=== PATIENT | female | born 1945 | race Caucasian/White ===

== ENCOUNTER → 2019-01-10 | Outpatient (CLI) | payer MEDICARE ==
--- NOTE | 2019-01-10 11:56 | MR ---
EXAMINATION TYPE: MR cervical spine wo con DATE OF EXAM: 01/10/2019 COMPARISON: None HISTORY: DDD / Stenosis TECHNIQUE: Multiplanar, multisequence images of the cervical spine were acquired. C2-C3: No evidence for degenerative disc disease. No disc bulge/herniation or protrusion. No Canal stenosis. Foramina are patent bilaterally. C3-C4: There is degenerative disc disease with bilateral uncovertebral joint hypertrophy and central disc bulging with mild effacement of thecal sac. There is mild left foraminal encroachment. No canal stenosis or spinal cord contact. C4-C5: Degenerative disc disease with bilateral uncovertebral joint hypertrophy. There is mild bilate ral foraminal encroachment. There is a central disc bulging with borderline central stenosis. C5-C6: Degenerative disc disease with central disc protrusion greater paracentrally left which abuts the anterior margin of the spinal cord and results in central stenosis. There is bilateral uncoverteb ral joint hypertrophy and mild bilateral foraminal encroachment. C6-C7: Degenerative disc disease with disc bulging greater laterally to the left. There is mild left foraminal encroachment. No Canal stenosis. C7-T1: Degenerative disc disease but no canal stenosis. No foraminal encroachment. Multi focal disc bulging or protrusions involving the upper thoracic spine. Cervical segments are intact. There is normal alignment. Cervical spinal cord is of normal signal. Craniovertebral junction relationships are within normal limits. IMPRESSION: 1. Multilevel degenerative disc disease with multilevel uncovertebral joint particularly in foraminal encroachment. 2. Multilevel disc bulging with the most marked findings at C4-5 and C5-C6. Findings result in centra l canal stenosis. 3. Left lateral disc bulging C6-C7 with mild left foraminal encroachment but no nerve root contact. 4. On the sagittal images there is multifocal disc bulging in the upper thoracic spine.
== END | disposition home or self-care (01) ==
LOC: RADMRIMAIN 10:17
PROVIDERS: ATTEND Orthopaedic Surgery
DX: M50.221 Other cervical disc displacement at C4-C5 level (principal); M50.31 Other cervical disc degeneration, high cervical region
CPT/HCPCS: 72141

== ENCOUNTER → 2019-05-21 | Outpatient (CLI) | payer MEDICARE ==
[2019-05-21 20:12] LABS: Iron Saturation 13.08 (12.00-45.00)
[2019-05-21 20:14] LABS: T4, Free (Free Thyroxine) 1.7 ng/dL (0.80-1.80)
== END | disposition home or self-care (01) ==
LOC: LABWHC1 12:04
PROVIDERS: ATTEND Internal Medicine Critical Care Medicine
DX: D39.0 Neoplasm of uncertain behavior of uterus (principal); G47.9 Sleep disorder, unspecified
CPT/HCPCS: 36415; 83540; 83550; 84439; 84443

== ENCOUNTER → 2019-08-21 | Outpatient (CLI) | payer MEDICARE ==
--- NOTE | 2019-08-21 10:18 | CT ---
EXAMINATION TYPE: CT brain wo con DATE OF EXAM: 08/21/2019 COMPARISON: 01/21/2015 HISTORY: 73-year-old female Headaches and dizziness TECHNIQUE: Examination was done in axial plane without intravenous contrast. Coronal and sagittal r econstructions performed. CT DLP: 1121 mGycm Automated exposure control for dose reduction was used. FINDINGS: There is no evidence of acute intracranial hemorrhage, acute ischemic changes, mass, mass-effect, or extra-axial fluid collection. There is no effacement of cerebral sulci or basal subarachnoid cister ns. There is no hydrocephalus. There is no midline shift. Vila-white matter distinction is preserv ed. Partially empty sella. Patchy white matter hypodensities stable from 2014. Benign basal ganglionic ca lcifications Mastoid air cells are well pneumatized. Orbits and globes are intact. Scattered mild mucosal thicken ing ethmoid air cells. IMPRESSION: No acute intracranial abnormality seen. Stable patchy changes of chronic small vessel ischemic diseas e. Mild chronic ethmoid sinus disease.
== END | disposition home or self-care (01) ==
LOC: RADCTMAIN 09:30
PROVIDERS: ATTEND Family Medicine
DX: R42 Dizziness and giddiness (principal)
CPT/HCPCS: 70450

== ENCOUNTER → 2019-10-21 | Outpatient (CLI) | payer MEDICARE ==
[2019-10-21 17:40] LABS: Albumin 3.8 g/dL (3.5-5.0); Calcium 9.7 mg/dL (8.4-10.2); Potassium 4.5 mmol/L (3.5-5.1); Total Bilirubin 0.7 mg/dL (0.2-1.3); Total Protein 6.8 g/dL (6.3-8.2)
--- NOTE | 2019-10-21 18:55 | US ---
EXAMINATION TYPE: US thyroid st tissue head/neck DATE OF EXAM: 10/21/2019 COMPARISON: NONE CLINICAL HISTORY: E03.9 Hypothyroidism, R13.10 dysphagia. GLAND SIZE: Right Lobe: no tissue appreciated Left Lobe: no tissue appreciated NODULES RIGHT: # of nodules measured on right: 0 LEFT: # of nodules measured on left: 0 ISTHMUS: # of nodules measured in the isthmus: 0 Bilateral neck scanned, no evidence of lymphadenopathy. Patient states no history of surgery, no thyroid tissue appreciated. IMPRESSION: No thyroid tissue seen. Correlate clinically.
== END | disposition home or self-care (01) ==
LOC: RADUSWWP 16:33
PROVIDERS: ATTEND Family Medicine
DX: E03.9 Hypothyroidism, unspecified (principal); E78.5 Hyperlipidemia, unspecified; E11.9 Type 2 diabetes mellitus without complications; R13.10 Dysphagia, unspecified; R68.2 Dry mouth, unspecified
CPT/HCPCS: 36415; 76536; 80053; 80061; 82550; 86038; 86235

== ENCOUNTER 2019-11-20 10:07 | Inpatient (IN) | payer MEDICARE ==
[2019-11-20] MEDS ORDERED: SODIUM CHLORIDE 0.9% 500 ML 500 ML IV STA (10:51)
[2019-11-20] MEDS ORDERED: PANTOPRAZOLE 40 MG/10 ML VIAL IVP STA (10:52)
--- NOTE | 2019-11-20 11:08 | ED ---
GI Bleed HPI - General Chief complaint: GI Bleed Stated complaint: rectal bleeding Time Seen by Provider: 11/20/19 10:50 Source: patient Mode of arrival: ambulatory Limitations: no limitations - History of Present Illness Initial comments: 73-year-old female presenting for GI bleeding times weeks. Patient states that she has had bright red blood per rectum small amount with a past 3 weeks she states has been increasing and become a large amount over the last 3 days. Patient amidst a cold intolerance denies palpitations she states is diffuse nonspecific abdominal pain denies it being severe she states it is mild. Patient states it is crampy in nature without radiation. Denies vomiting, fevers, diarrhea. Patient states that she was so weak on Sunday she fell forward hitting her head. Patient denies loss of consciousness denies syncope. Patient denies any chest pain or shortness of breath. Patient has a known history of diverticulitis or diverticulosis. Patient is on xarelto due to history of deep venous thrombosis and pulmonary embolism. Patient states she is compliant last dose was yesterday evening. Patient did not take any xarelto today. Patient appears well on arrival, no acute distress, BP stable, no tachycardia. - Related Data Home Medications Medication Instructions Recorded Confirmed Furosemide [Lasix] 20 mg PO DAILY PRN 08/25/14 11/20/19 Cholecalciferol [Vitamin D3 (25 1,000 unit PO DAILY 10/03/15 11/20/19 Mcg = 1000 Iu)] Cyanocobalamin [Vitamin B-12] 500 mcg PO DAILY 10/04/15 11/20/19 Insulin Detemir [Levemir Flextouch] 34 units SQ HS 10/04/15 11/20/19 Insulin Lispro [humaLOG Kwikpen] 6 unit SQ AC-TID 10/04/15 11/20/19 Pantoprazole [Protonix] 40 mg PO DAILY 10/04/15 11/20/19 Rivaroxaban [Xarelto] 20 mg PO DAILY 03/04/19 11/20/19 Aspirin EC [Ecotrin Low Dose] 81 mg PO DAILY 11/20/19 11/20/19 DULoxetine HCL [Cymbalta] 30 mg PO DAILY 11/20/19 11/20/19 Ferrous Sulfate [Feosol] 325 mg PO DAILY 11/20/19 11/20/19 Isosorbide Mononitrate ER [Imdur] 30 mg PO DAILY 11/20/19 11/20/19 Levothyroxine Sodium [Synthroid] 125 mcg PO DAILY 11/20/19 11/20/19 Melatonin 5 mg PO HS 11/20/19 11/20/19 Metoprolol Tartrate [Lopressor] 25 mg PO BID 11/20/19 11/20/19 Potassium Gluconate 99 mg PO DAILY 11/20/19 11/20/19 Pravastatin Sodium [Pravachol] 10 mg PO HS 11/20/19 11/20/19 Allergies Allergy/AdvReac Type Severity Reaction Status Date / Time losartan [Losartan] AdvReac Cough Verified 11/20/19 14:27 Review of Systems ROS Statement: Those systems with pertinent positive or pertinent negative responses have been documented in the HPI. ROS Other: All systems not noted in ROS Statement are negative. Past Medical History Past Medical History: Cancer, Chest Pain / Angina, COPD, Diabetes Mellitus, Deep Vein Thrombosis (DVT), GERD/Reflux, Hyperlipidemia, Hypertension, Pneumonia, Pulmonary Embolus (PE), Thyroid Disorder Additional Past Medical History / Comment(s): DVT X2 LAST ONE 08/2014, HX UTERINE CA, RADIATION. IRON DEFECIENCY ANEMIA. 3 BLOOD CLOTS TO RIGHT LEG IN THE PAST. History of Any Multi-Drug Resistant Organisms: None Reported Past Surgical History: Adenoidectomy, Appendectomy, Hysterectomy, Orthopedic Surgery, Tonsillectomy Additional Past Surgical History / Comment(s): breast reduction, chin lift, lisette knee replacement Past Anesthesia/Blood Transfusion Reactions: No Reported Reaction Past Psychological History: Anxiety Smoking Status: Never smoker Past Alcohol Use History: Occasional Past Drug Use History: None Reported - Past Family History Sister(s) Family Medical History: Diabetes Mellitus Father Additional Family Medical History / Comment(s): Stroke Mother Family Medical History: Congestive Heart Failure (CHF) General Exam - General Exam Comments Initial Comments: General: The patient is awake and alert, in no distress Eye: +3 mm pupils are equal, round and reactive to light, extra-ocular movements are intact. No nystagmus. There is normal conjunctiva bilaterally. No signs of icterus. Ears, nose, mouth and throat: There are moist mucous membranes and no oral lesions. Neck: The neck is supple, there is no tenderness or JVD. Cardiovascular: There is a regular rate and rhythm. No murmur, rub or gallop is appreciated. Respiratory: Lungs are clear to auscultation, respirations are non-labored, breath sounds are equal. No wheezes, stridor, rales, or rhonchi. Gastrointestinal: Soft, non-distended, diffuse mild nonlocalized abdominal pain, no localized tenderness, abdomen without masses or organomegaly noted. There is no rebound or guarding present. Rectal: External hemorrhoids, no bright red blood per rectum. Musculoskeletal: Normal ROM, no tenderness. Strength 5/5. Sensation intact. Radial and DP pulses equal bilaterally 2+. Neurological: A&O x 3. CN II-XII intact grossly, There are no obvious motor or sensory deficits. Coordination appears grossly intact. Speech is normal. Skin: Skin is warm and dry and no rashes or lesions are noted. Psychiatric: Cooperative, appropriate mood & affect, normal judgment. Limitations: no limitations Course Vital Signs 11/20/19 11/20/19 11/20/19 10:18 11:21 12:00 Temperature 97.5 F L Pulse Rate 60 68 Pulse Rate [ Product Safety Officer ] Respiratory 18 20 16 Rate Blood Pressure 107/67 155/73 Blood Pressure [Left Arm] O2 Sat by Pulse 97 98 98 Oximetry 11/20/19 11/20/19 11/20/19 12:33 12:40 12:50 Temperature Pulse Rate 64 66 65 Pulse Rate [ Product Safety Officer ] Respiratory 16 16 16 Rate Blood Pressure 155/73 155/73 Blood Pressure [Left Arm] O2 Sat by Pulse 97 99 98 Oximetry 11/20/19 11/20/19 13:00 13:41 Temperature 98.1 F Pulse Rate 62 Pulse Rate [ 66 Product Safety Officer ] Respiratory 16 16 Rate Blood Pressure 154/74 Blood Pressure 195/91 [Left Arm] O2 Sat by Pulse 98 97 Oximetry Medical Decision Making - Medical Decision Making 73yo female presenting bright red bleeding per rectum. Pinkish, light brown stool on exam. Occult +. CT (-) for acute process. Pt on xarelot. HgB. BP stable. Patient HR WNL. Patient will be admitted for GI bleed with GI consultation. Repeat CBC ordered, patient on IV fluids. Dr. Orr is agreeable to admission and care plan. - Lab Data Result diagrams: 11/20/19 11:24 11/20/19 11:24 Lab Results 11/20/19 11/20/19 11/20/19 Range/Units 11:15 11:24 11:24 WBC 4.5 (3.8-10.6) k/uL RBC 4.20 (3.80-5.40) m/uL Hgb 12.0 (11.4-16.0) gm/dL Hct 38.0 (34.0-46.0) % MCV 90.5 (80.0-100.0) fL MCH 28.5 (25.0-35.0) pg MCHC 31.5 (31.0-37.0) g/dL RDW 13.9 (11.5-15.5) % Plt Count 158 (150-450) k/uL Neutrophils % 56 % Lymphocytes % 29 % Monocytes % 5 % Eosinophils % 6 % Basophils % 1 % Neutrophils # 2.6 (1.3-7.7) k/uL Lymphocytes # 1.3 (1.0-4.8) k/uL Monocytes # 0.2 (0-1.0) k/uL Eosinophils # 0.3 (0-0.7) k/uL Basophils # 0.0 (0-0.2) k/uL APTT (22.0-30.0) sec Sodium 135 L (137-145) mmol/L Potassium 5.1 (3.5-5.1) mmol/L Chloride 99 (98-107) mmol/L Carbon Dioxide 31 H (22-30) mmol/L Anion Gap 5 mmol/L BUN 33 H (7-17) mg/dL Creatinine 0.84 (0.52-1.04) mg/dL Est GFR (CKD-EPI)AfAm 79 (>60 ml/min/1.73 sqM) Est GFR (CKD-EPI)NonAf 68 (>60 ml/min/1.73 sqM) Glucose 414 H (74-99) mg/dL Plasma Lactic Acid Jaquan (0.7-2.0) mmol/L Calcium 9.3 (8.4-10.2) mg/dL Total Bilirubin 0.8 (0.2-1.3) mg/dL AST 26 (14-36) U/L ALT 22 (4-34) U/L Alkaline Phosphatase 104 (38-126) U/L Troponin I (0.000-0.034) ng/mL Total Protein 6.1 L (6.3-8.2) g/dL Albumin 3.4 L (3.5-5.0) g/dL Stool Occult Blood Positive H (Negative) Blood Type Blood Type Confirm Blood Type Recheck Bld Type Recheck Status Antibody Screen Spec Expiration Date 11/20/19 11/20/19 11/20/19 Range/Units 11:24 11:24 11:24 WBC (3.8-10.6) k/uL RBC (3.80-5.40) m/uL Hgb (11.4-16.0) gm/dL Hct (34.0-46.0) % MCV (80.0-100.0) fL MCH (25.0-35.0) pg MCHC (31.0-37.0) g/dL RDW (11.5-15.5) % Plt Count (150-450) k/uL Neutrophils % % Lymphocytes % % Monocytes % % Eosinophils % % Basophils % % Neutrophils # (1.3-7.7) k/uL Lymphocytes # (1.0-4.8) k/uL Monocytes # (0-1.0) k/uL Eosinophils # (0-0.7) k/uL Basophils # (0-0.2) k/uL APTT 25.9 (22.0-30.0) sec Sodium (137-145) mmol/L Potassium (3.5-5.1) mmol/L Chloride (98-107) mmol/L Carbon Dioxide (22-30) mmol/L Anion Gap mmol/L BUN (7-17) mg/dL Creatinine (0.52-1.04) mg/dL Est GFR (CKD-EPI)AfAm (>60 ml/min/1.73 sqM) Est GFR (CKD-EPI)NonAf (>60 ml/min/1.73 sqM) Glucose (74-99) mg/dL Plasma Lactic Acid Jaquan 1.7 (0.7-2.0) mmol/L Calcium (8.4-10.2) mg/dL Total Bilirubin (0.2-1.3) mg/dL AST (14-36) U/L ALT (4-34) U/L Alkaline Phosphatase (38-126) U/L Troponin I <0.012 (0.000-0.034) ng/mL Total Protein (6.3-8.2) g/dL Albumin (3.5-5.0) g/dL Stool Occult Blood (Negative) Blood Type Blood Type Confirm Blood Type Recheck Bld Type Recheck Status Antibody Screen Spec Expiration Date 11/20/19 11/20/19 Range/Units 11:24 12:25 WBC (3.8-10.6) k/uL RBC (3.80-5.40) m/uL Hgb (11.4-16.0) gm/dL Hct (34.0-46.0) % MCV (80.0-100.0) fL MCH (25.0-35.0) pg MCHC (31.0-37.0) g/dL RDW (11.5-15.5) % Plt Count (150-450) k/uL Neutrophils % % Lymphocytes % % Monocytes % % Eosinophils % % Basophils % % Neutrophils # (1.3-7.7) k/uL Lymphocytes # (1.0-4.8) k/uL Monocytes # (0-1.0) k/uL Eosinophils # (0-0.7) k/uL Basophils # (0-0.2) k/uL APTT (22.0-30.0) sec Sodium (137-145) mmol/L Potassium (3.5-5.1) mmol/L Chloride (98-107) mmol/L Carbon Dioxide (22-30) mmol/L Anion Gap mmol/L BUN (7-17) mg/dL Creatinine (0.52-1.04) mg/dL Est GFR (CKD-EPI)AfAm (>60 ml/min/1.73 sqM) Est GFR (CKD-EPI)NonAf (>60 ml/min/1.73 sqM) Glucose (74-99) mg/dL Plasma Lactic Acid Jaquan (0.7-2.0) mmol/L Calcium (8.4-10.2) mg/dL Total Bilirubin (0.2-1.3) mg/dL AST (14-36) U/L ALT (4-34) U/L Alkaline Phosphatase (38-126) U/L Troponin I (0.000-0.034) ng/mL Total Protein (6.3-8.2) g/dL Albumin (3.5-5.0) g/dL Stool Occult Blood (Negative) Blood Type AB Positive Blood Type Confirm AB Positive Blood Type Recheck No Previous Record Bld Type Recheck Status CABO Indicated Antibody Screen NEGATIVE Spec Expiration Date 11/23/2019 - 2323 Disposition Clinical Impression: GI bleed, Fall Disposition: HOME SELF-CARE Condition: Stable Is patient prescribed a controlled substance at d/c from ED?: No Time of Disposition: 13:01 Decision to Admit Reason: Admit from EC Decision Date: 11/20/19 Decision Time: 13:01
[2019-11-20 11:40] LABS: Basophils % (A) 1 %; Eosinophils # (A) 0.3 k/uL (0-0.7); Eosinophils % (A) 6 %; Lymphocytes # (A) 1.3 k/uL (1.0-4.8); Lymphocytes % (A) 29 %; MCH 28.5 pg (25.0-35.0); MCHC 31.5 g/dL (31.0-37.0); MCV 90.5 fL (80.0-100.0); Mean Platelet Volume 8.8; Monocytes # (A) 0.2 k/uL (0-1.0); Monocytes % (A) 5 %; Neutrophils # (A) 2.6 k/uL (1.3-7.7); Neutrophils % (A) 56 %; Platelet Count 158 k/uL (150-450); RDW 13.9 % (11.5-15.5); WBC 4.5 k/uL (3.8-10.6)
[2019-11-20 11:55] LABS: Albumin 3.4 g/dL (3.5-5.0); Calcium 9.3 mg/dL (8.4-10.2); Potassium 5.1 mmol/L (3.5-5.1); Total Bilirubin 0.8 mg/dL (0.2-1.3); Total Protein 6.1 g/dL (6.3-8.2)
--- NOTE | 2019-11-20 12:21 | XR ---
Lumbar spine HISTORY: Trauma and pain 3 views of the lumbar spine Bone mineralization is reduced. There is multilevel spondylosis. There is anterolisthesis grade 1 at L4-5. Loss of disc height is present at intervertebral levels. Vacuum disc phenomenon present at T12- L1, T11-T12, L1-2. Sclerosis present in the posterior elements of the lumbar spine compatible with fa cet arthropathy. There are dense vascular calcifications within the aorta, aorta may be aneurysmal. IMPRESSION: Osteopenia, degenerative disc disease and facet arthropathy. Possible aortic aneurysm.
[2019-11-20] MEDS: SODIUM CHLORIDE 0.9% 1,000 ML IV SCH (12:26)
--- NOTE | 2019-11-20 12:40 | CT ---
EXAMINATION TYPE: CT brain leidy wo con DATE OF EXAM: 11/20/2019 COMPARISON: 08/21/2019 HISTORY: Fall on 11/17/2019. Head and neck pain. CT DLP: 1454.6 mGycm, Automated exposure control for dose reduction was used. CONTRAST: Patient injected with 0 mL of Isovue 300. CT of the brain is performed utilizing 3 mm thick sections through the posterior fossa and 3 mm thick sections through the remaining calvarium. Study is performed within 24 hours of arrival to the hospital. No abnormal hyperdensity is present to suggest an acute intracranial hemorrhage. No mass lesion is evident. No acute infarcts are evident. There is some hypodensity within the left basal ganglion. This was pr esent previously. Periventricular white matter hypodensity is present, likely on the basis of chronic white matter ischemic change. Ventricles and sulci are prominent for the patient age. Paranasal sinuses and mastoid air cells within the [id number] are clear. IMPRESSIONS: 1. Atrophy with periventricular white matter ischemic changes. 2. No acute intracranial process. CT cervical spine. COMPARISON: None CT of the cervical spine is performed in the axial plane at 2 mm thick sections. Reconstructed image s in the coronal, and sagittal plane are reviewed on the computer. No acute fractures are evident. There is straightening of the vertebral alignment in the sagittal plane. Disc space narrowing is present diffusely. Vertebral body heights are preserved. No spinal canal stenosis is evident. Uncovertebral joint hypertrophy is present with some mild foraminal narrowing within the mid to lower cervical spine. IMPRESSIONS: 1. Degenerative disc changes. 2. No acute osseous abnormality is evident.
[2019-11-20] MEDS ORDERED: NALOXONE 0.4 MG/ML 1 ML VIAL IV PRN (12:58)
[2019-11-20] MEDS ORDERED: INSULIN REGULAR 100 UNIT/ML VIAL SQ ONE (13:08)
--- NOTE | 2019-11-20 13:09 | CT ---
EXAMINATION TYPE: CT abdomen pelvis w con DATE OF EXAM: 11/20/2019 COMPARISON: None INDICATION: Fall on 11/17/2019. Pelvic pain and rectal bleeding. DLP: 1131.2 mGycm, Automated exposure control for dose reduction was used. CONTRAST: 100 mL of Isovue 300. Study performed without Oral Contrast TECHNIQUE: Axial images were obtained from above the diaphragm to the pubic rami in the axial plane a t 5 mm thick sections. Reconstructed images are reviewed on the computer in the coronal plane. FINDINGS: Limited CT sections are obtained the lung bases. The lung bases are clear. CT ABDOMEN: Liver: Normal Spleen: Normal Pancreas: Normal Adrenal glands: The adrenal glands are normal. Gallbladder: Normal Kidneys: No masses are evident. No hydronephrosis is present. No cysts are present. Delayed images were obtained through the kidneys, which remain unremarkable. Aorta: Vascular calcification is within the aorta. Inferior vena cava: Normal. CT PELVIS: There is a small fat-containing periumbilical hernia. Loops of bowel within the abdomen and pelvis are normal. There are loops of bowel which are incom pletely distended or lack oral contrast limiting their evaluation. Appendix: Appears to be the appendix is Normal as visualized. Urinary bladder: Normal. Genitourinary structures: Uterus and ovaries are not identified. Osseous structures: No suspicious lytic or sclerotic lesions are evident. Facet degenerative changes are in the lower lumbar spine. Degenerative disc changes are in the upper lumbar spine. IMPRESSIONS: 1. Small mesenteric fat containing periumbilical hernia.
[2019-11-20] MEDS ORDERED: ACETAMINOPHEN TAB 325 MG TAB PO STA (13:24)
[2019-11-20 13:25] LABS: Glucose,Whole Blood 345 mg/dL (75-99)
[2019-11-20] MEDS ORDERED: FUROSEMIDE 20 MG TAB PO PRN (16:25)
[2019-11-20 16:30] LABS: Glucose,Whole Blood 355 mg/dL (75-99)
[2019-11-20] MEDS ORDERED: ISOSORBIDE MONONITRATE ER 30 MG TAB.ER.24H PO STA (17:19)
[2019-11-20] MEDS: INSULIN ASPART (NovoLOG) 100 UNIT/ML VIAL SQ SCH ×3 (17:27→21:19)
--- NOTE | 2019-11-20 18:45 | P.HPIM ---
History of Present Illness H&P Date: 11/20/19 Chief Complaint: Hematochezia 73-year-old female with PMH of hypertension, CAD post CABG, hypothyroidism, atrial fibrillation on anticoagulation, diabetes mellitus presents to the ED for rectal bleed. Patient reports rectal bleeding that has been ongoing for the past week. Patient states that she is squirting bright red blood out of her rectum without clots. Patient also reports loose stools since Sunday. She denies any melena. Patient reports "falling flat on her face" on Sunday but denies any loss of consciousness. She states that her legs simply gave out. This happened while she was attempting to get out of bed. Patient currently reports a temporal headache. She denies any lower extremity edema, nausea or vomiting, fever or chills, cough, chest pain, shortness of breath, palpitations, changes in urination. She denies any changes in appetite. Patient denies dizziness, numbness/weakness/tingling of the extremities. In the ED, she was hemodynamically stable except for BP slightly elevated at 155/73. CBC was unremarkable. Cognition panel was negative. CMP showed sodium 135, bicarbonate 31, BUN 33, glucose 414. Troponin was less than 0.012, EKG showing sinus bradycardia with T-wave inversion. Stool for occult blood was positive. CT abdomen and pelvis showed periumbilical hernia. Lumbar x-ray showed degenerative disc disease and possible aortic aneurysm. CT of the head and neck showed no acute process. Patient is admitted for rectal bleed with gastroenterology on consultation. Review of Systems Pertinent positives and negatives as discussed in HPI, a complete review of systems was performed and all other systems are negative. Past Medical History Past Medical History: Cancer, Chest Pain / Angina, COPD, Diabetes Mellitus, Deep Vein Thrombosis (DVT), GERD/Reflux, Hyperlipidemia, Hypertension, Pneumonia, Pulmonary Embolus (PE), Thyroid Disorder Additional Past Medical History / Comment(s): DVT X2 LAST ONE 08/2014, HX UTERINE CA, RADIATION. IRON DEFECIENCY ANEMIA. 3 BLOOD CLOTS TO RIGHT LEG IN THE PAST. History of Any Multi-Drug Resistant Organisms: None Reported Past Surgical History: Adenoidectomy, Appendectomy, Hysterectomy, Orthopedic Surgery, Tonsillectomy Additional Past Surgical History / Comment(s): breast reduction, chin lift, lisette knee replacement Past Anesthesia/Blood Transfusion Reactions: No Reported Reaction Past Psychological History: Anxiety Smoking Status: Never smoker Past Alcohol Use History: Occasional Past Drug Use History: None Reported - Past Family History Sister(s) Family Medical History: Diabetes Mellitus Father Additional Family Medical History / Comment(s): Stroke Mother Family Medical History: Congestive Heart Failure (CHF) Medications and Allergies Home Medications Medication Instructions Recorded Confirmed Type Furosemide [Lasix] 20 mg PO DAILY PRN 08/25/14 11/20/19 History Cholecalciferol [Vitamin D3 (25 1,000 unit PO DAILY 10/03/15 11/20/19 History Mcg = 1000 Iu)] Cyanocobalamin [Vitamin B-12] 500 mcg PO DAILY 10/04/15 11/20/19 History Insulin Detemir [Levemir Flextouch] 34 units SQ HS 10/04/15 11/20/19 History Insulin Lispro [humaLOG Kwikpen] 6 unit SQ AC-TID 10/04/15 11/20/19 History Pantoprazole [Protonix] 40 mg PO DAILY 10/04/15 11/20/19 History Rivaroxaban [Xarelto] 20 mg PO DAILY 03/04/19 11/20/19 History Aspirin EC [Ecotrin Low Dose] 81 mg PO DAILY 11/20/19 11/20/19 History DULoxetine HCL [Cymbalta] 30 mg PO DAILY 11/20/19 11/20/19 History Ferrous Sulfate [Feosol] 325 mg PO DAILY 11/20/19 11/20/19 History Isosorbide Mononitrate ER [Imdur] 30 mg PO DAILY 11/20/19 11/20/19 History Levothyroxine Sodium [Synthroid] 125 mcg PO DAILY 11/20/19 11/20/19 History Melatonin 5 mg PO HS 11/20/19 11/20/19 History Metoprolol Tartrate [Lopressor] 25 mg PO BID 11/20/19 11/20/19 History Potassium Gluconate 99 mg PO DAILY 11/20/19 11/20/19 History Pravastatin Sodium [Pravachol] 10 mg PO HS 11/20/19 11/20/19 History Allergies Allergy/AdvReac Type Severity Reaction Status Date / Time losartan [Losartan] AdvReac Cough Verified 11/20/19 14:27 Physical Exam Vitals: Vital Signs Temp Pulse Pulse Resp BP BP Pulse Ox 11/20/19 16:00 98.6 F 71 18 181/74 99 11/20/19 13:41 98.1 F 66 16 195/91 97 11/20/19 13:00 62 16 154/74 98 11/20/19 12:50 65 16 155/73 98 11/20/19 12:40 66 16 155/73 99 11/20/19 12:33 64 16 97 11/20/19 12:00 68 16 155/73 98 11/20/19 11:21 20 98 11/20/19 10:18 97.5 F L 60 18 107/67 97 Intake and Output 11/20/19 11/20/19 11/20/19 06:59 14:59 22:59 Other: Voiding Method Toilet Weight 70.896 kg General: [non toxic], [no distress], [appears at stated age] Derm: [warm], [dry] Head: [atraumatic], [normocephalic], [symmetric] Eyes: [EOMI], [no lid lag], [anicteric sclera] Mouth: [no lip lesion], [mucus membranes moist] Cardiovascular: [S1S2 reg], [no murmur], [positive DP pulse bilateral], Lungs: [CTA bilateral], [no rhonchi, no rales] , [no accessory muscle use] Abdominal: [soft], [ nontender to palpation], [no guarding], [no appreciable organomegaly] Ext: [no gross muscle atrophy], [no edema], [no contractures] Neuro: [ CN II-XI grossly intact], [no focal neuro deficits] Psych: [Alert], [oriented], [appropriate affect] Results CBC & Chem 7: 11/20/19 11:24 11/20/19 11:24 Labs: Abnormal Lab Results - Last 24 Hours (Table) 11/20/19 11/20/19 11/20/19 Range/Units 11:15 11:24 13:22 Sodium 135 L (137-145) mmol/L Carbon Dioxide 31 H (22-30) mmol/L BUN 33 H (7-17) mg/dL Glucose 414 H (74-99) mg/dL POC Glucose (mg/dL) 345 H (75-99) mg/dL Total Protein 6.1 L (6.3-8.2) g/dL Albumin 3.4 L (3.5-5.0) g/dL Stool Occult Blood Positive H (Negative) 11/20/19 Range/Units 16:29 Sodium (137-145) mmol/L Carbon Dioxide (22-30) mmol/L BUN (7-17) mg/dL Glucose (74-99) mg/dL POC Glucose (mg/dL) 355 H (75-99) mg/dL Total Protein (6.3-8.2) g/dL Albumin (3.5-5.0) g/dL Stool Occult Blood (Negative) Thrombosis Risk Factor Assmnt - Choose All That Apply Each Factor Represents 1 point: Obesity (BMI >25) Each Risk Factor Represents 3 Points: Age 75 years or older, History of DVT/PE Other congenital or acquired thrombophilia - If yes, enter type in comment: No Thrombosis Risk Factor Assessment Total Risk Factor Score: 7 Thrombosis Risk Factor Assessment Level: High Risk Assessment and Plan Assessment: Acute GI bleed Elevated BUN Diabetes mellitus with hyperglycemia Atrial fibrillation on anticoagulation Hypertension with slightly elevated BP CAD with history of CABG Hemoglobin 12. Stool for occult blood positive. Plans: Repeat CBC now. Start Protonix 40 mg IV twice a day. Clear liquid diet started by GI. Telemetry monitoring. Appears to be lower GI bleed from description, possible internal hemorrhoids? Discontinue aspirin and Xarelto. Plans for colonoscopy on Sunday. Follow gastroenterology recommendations. BUN 33. Likely due to acute bleed. Plans: Start normal saline at 100 mL/h. Avoid nephrotoxins. Repeat BMP tomorrow morning. Himje-vj-clrd glucose 355. Plans: Given 5 units of insulin in the ED. Start insulin sliding scale. NovoLog 6 units 3 times a day with meals. Regular Accu- Cheks. Hypoglycemic precautions. Paroxysmal. Plans: Continue metoprolol home dose. Avoid anticoagulation due to GI bleed. BP 181/74. Plans: Continue metoprolol and Imdur. Monitor vitals, adjust medications as necessary. Plans: Hold aspirin. Continue beta thi. Continue Lipitor. DVT prophylaxis: [SCD] Discussed with: [Patient] Anticipated discharge: [1-2 days] Anticipated discharge place: [Home] A total of [45] minutes was spent on the care of this complex patient more than 50% of the time was spent in counseling and care coordination. Patient names her son Roscoe decision maker if she can't make decisions for herself. Patient will like to remain full code.
[2019-11-20] MEDS ORDERED: LOPERAMIDE 2 MG CAP PO PRN (18:54)
[2019-11-20 19:44] LABS: Basophils % (A) 1 %; Eosinophils # (A) 0.3 k/uL (0-0.7); Eosinophils % (A) 6 %; HCT 39.6 % (34.0-46.0); HGB 12.7 gm/dL (11.4-16.0); Lymphocytes # (A) 2.1 k/uL (1.0-4.8); Lymphocytes % (A) 39 %; MCH 29.3 pg (25.0-35.0); MCHC 32.1 g/dL (31.0-37.0); MCV 91.3 fL (80.0-100.0); Mean Platelet Volume 8.9; Monocytes # (A) 0.3 k/uL (0-1.0); Monocytes % (A) 5 %; Neutrophils # (A) 2.5 k/uL (1.3-7.7); Neutrophils % (A) 46 %; Platelet Count 194 k/uL (150-450); RBC 4.34 m/uL (3.80-5.40); RDW 13.8 % (11.5-15.5); WBC 5.4 k/uL (3.8-10.6)
--- NOTE | 2019-11-20 19:57 | CONS ---
CONSULTATION DATE OF DICTATION: 11/20/2019 REASON FOR CONSULTATION: Acute GI bleed. HISTORY OF PRESENT ILLNESS: The patient is a 73-year-old pleasant white female with history of recurrent DVT and was on Xarelto. Her last dose was last night. She came into the emergency room because she has been having intermittent rectal bleeding for the last 2 weeks' duration. She is initially not sure whether the bleeding is in the stool; however, every time after a bowel movement when she stands up she notices dripping of fresh blood along her thighs. Initially it was a small amount, but for the last 3-4 days she has been noticing a significant amount of bleeding. She became concerned, came into the emergency room, and subsequently was admitted to the hospital for further evaluation. As per the ER physician, rectal examination did show some pink-colored stool. She has been on Xarelto for 3 years for recurrent deep venous thrombosis and history of pulmonary embolism. She recalls having a colonoscopy about 5 or 6 years ago that was unremarkable. She denies any abdominal pain, reports no nausea, vomiting. No fever, chills or night sweats. PAST MEDICAL HISTORY: Significant for recurrent DVT, on Xarelto, diabetes mellitus, hypertension, hyperlipidemia, gastroesophageal reflux disease, hypothyroidism. History of uterine cancer, for which she underwent radiation therapy, history of recurrent DVT. PAST SURGICAL HISTORY: Appendectomy, adenoidectomy, hysterectomy, tonsillectomy, breast reduction, bilateral knee replacement. MEDICATIONS AT HOME: Medications at home include Xarelto, Protonix, Lopressor, Synthroid, insulin, Lexapro, Xanax, vitamin D3, K-Leslie, Pravachol, Lasix and folic acid. ALLERGIES: LOSARTAN. SOCIAL HISTORY: No smoking. No alcohol use. FAMILY HISTORY: Father had a stroke. Sister had diabetes mellitus. REVIEW OF SYSTEMS: CARDIOPULMONARY: No chest pain or shortness of breath. GENITOURINARY: No dysuria or hematuria. MUSCULOSKELETAL: Unremarkable. SKIN: Unremarkable. ENDOCRINE: Unremarkable. PSYCHIATRIC: Unremarkable. NEUROLOGY: Unremarkable. ENT/VISION: Unremarkable. CONSTITUTIONAL: No recent weight loss. No fever, chills, night sweats. PHYSICAL EXAMINATION: She appears comfortable. No apparent distress. Vital signs are stable. Blood pressure 195/91, pulse rate 66, temperature 98.1. HEENT examination unremarkable. Conjunctivae pink. Sclerae anicteric. Oral cavity no lesions. NECK: No JVD or lymph node enlargement. CHEST: Clear to auscultation. HEART: Regular rate and rhythm. ABDOMEN: Soft. Bowel sounds are positive. No organomegaly. EXTREMITIES: No pedal edema. SKIN: No rashes. NEUROLOGIC: Alert and oriented x3. No focal deficits. LABS: Labs done at the time of admission to the hospital: WBC 4.5, hemoglobin 12, platelets normal. Basic metabolic panel is within normal limits. BUN is 33, creatinine 0.84. Blood sugar was 414. Stool occult blood was positive. IMPRESSION: 1. This is a patient who presents to the hospital with rectal bleeding for the last 2 weeks' duration. Initially it was a small amount, but for the last 3-4 days she has been noticing bright red blood dripping along her thighs following bowel movements. Rectal examination revealed small amount of fresh blood. Stool Hemoccult was also positive. Hemoglobin stable at 12 g/dL. Last colonoscopy was about 6-7 years ago and according to the patient it was within normal limits. 2. History of recurrent deep venous thrombosis, on Xarelto. Last dose was last night. 3. History of diabetes mellitus. 4. Hypertension and hyperlipidemia. 5. History of uterine cancer, status post radiation therapy many years ago. RECOMMENDATIONS: 1. Continue to hold Xarelto. 2. Start her on a clear liquid diet. 3. Monitor CBC on a daily basis. 4. Will obtain colonoscopy report from Dr. Cuellar's office. 5. Will consider doing a colonoscopy on Sunday based on her clinical condition. The plan was discussed with the patient. She is agreeable to it. Thank you for this consultation. MMODL / IJN: [id number] /
[2019-11-20] MEDS: PRAVASTATIN SODIUM 20 MG TAB PO SCH (20:20)
[2019-11-20] MEDS: MELATONIN 5 MG TABLET PO SCH (20:20)
[2019-11-20] MEDS: PANTOPRAZOLE 40 MG/10 ML VIAL IVP SCH (20:20)
[2019-11-20] MEDS: METOPROLOL TARTRATE 25 MG TAB PO SCH (20:20)
[2019-11-20 20:47] LABS: Glucose,Whole Blood 277 mg/dL (75-99)
[2019-11-21 01:56] LABS: Glucose,Whole Blood 118 mg/dL (75-99)
[2019-11-21 05:29] LABS: Glucose,Whole Blood 202 mg/dL (75-99)
[2019-11-21] MEDS ORDERED: PANTOPRAZOLE 40 MG TABLET PO SCH (06:30)
[2019-11-21] MEDS: INSULIN ASPART (NovoLOG) 100 UNIT/ML VIAL SQ SCH ×7 (06:38→21:16)
[2019-11-21] MEDS: LEVOTHYROXINE 125 MCG TAB PO SCH (06:39)
[2019-11-21] MEDS: METOPROLOL TARTRATE 25 MG TAB PO SCH ×2 (08:59→21:13)
[2019-11-21] MEDS: DULoxetine HCL 30 MG CAPSULE.DR PO SCH (08:59)
[2019-11-21] MEDS: PANTOPRAZOLE 40 MG/10 ML VIAL IVP SCH ×2 (08:59→21:14)
[2019-11-21] MEDS: SODIUM CHLORIDE 0.9% 1,000 ML IV SCH ×3 (08:59→18:34)
[2019-11-21] MEDS: ISOSORBIDE MONONITRATE ER 30 MG TAB.ER.24H PO SCH (08:59)
[2019-11-21 10:21] LABS: Basophils % (A) 0 %; Eosinophils # (A) 0.3 k/uL (0-0.7); Eosinophils % (A) 5 %; HCT 34.7 % (34.0-46.0); HGB 11.7 gm/dL (11.4-16.0); Lymphocytes # (A) 1.5 k/uL (1.0-4.8); Lymphocytes % (A) 29 %; MCH 30.7 pg (25.0-35.0); MCHC 33.8 g/dL (31.0-37.0); MCV 90.7 fL (80.0-100.0); Mean Platelet Volume 8.4; Monocytes # (A) 0.3 k/uL (0-1.0); Monocytes % (A) 6 %; Neutrophils # (A) 3.1 k/uL (1.3-7.7); Neutrophils % (A) 58 %; Platelet Count 164 k/uL (150-450); RBC 3.82 m/uL (3.80-5.40); WBC 5.3 k/uL (3.8-10.6)
[2019-11-21 12:25] LABS: Glucose,Whole Blood 251 mg/dL (75-99)
--- NOTE | 2019-11-21 14:38 | P.PN ---
Subjective Progress Note Date: 11/21/19 Principal diagnosis: GI bleed Patient was seen and examined. No acute events overnight. Patient with no bowel movement. No rectal bleeding. No melena. She denies any chest pain, shortness of breath or palpitations. No nausea vomiting. No fever or chills. Objective - Vital Signs Vital signs: Vital Signs Temp 96.6 F L 11/21/19 08:00 Pulse 80 11/21/19 08:00 Resp 18 11/21/19 04:00 BP 134/62 11/21/19 08:00 Pulse Ox 98 11/21/19 08:00 Intake & Output 11/20/19 11/21/19 11/21/19 18:59 06:59 18:59 Intake Total 236 1335 1257 Output Total 700 Balance 402 643 1696 Weight 70.896 kg 70.6 kg Intake: Intake, IV Titration 975 Amount Sodium Chloride 0.9% 1, 975 000 ml @ 100 mls/hr IV . [facility] Rx#:[id number] Oral [phone] Output: Urine 700 Other: Voiding Method Toilet Toilet # Voids 2 # Bowel Movements 2 - Exam General: [non toxic], [no distress], [appears at stated age] Derm: [warm], [dry] Head: [atraumatic], [normocephalic], [symmetric] Eyes: [EOMI], [no lid lag], [anicteric sclera] Mouth: [no lip lesion], [mucus membranes moist] Cardiovascular: [S1S2 reg], [no murmur], [positive DP pulse bilateral], Lungs: [CTA bilateral], [no rhonchi, no rales] , [no accessory muscle use] Abdominal: [soft], [ nontender to palpation], [no guarding], [no appreciable organomegaly] Ext: [no gross muscle atrophy], [no edema], [no contractures] Neuro: [no focal neuro deficits] Psych: [Alert], [oriented], [appropriate affect] - Labs CBC & Chem 7: 11/21/19 10:09 11/20/19 11:24 Labs: Abnormal Lab Results - Last 24 Hours (Table) 11/20/19 11/20/19 11/21/19 Range/Units 16:29 20:46 01:54 POC Glucose (mg/dL) 355 H 277 H 118 H (75-99) mg/dL 11/21/19 11/21/19 Range/Units 05:27 12:17 POC Glucose (mg/dL) 202 H 251 H (75-99) mg/dL Assessment and Plan Assessment: Acute GI bleed Elevated BUN Diabetes mellitus with hyperglycemia Atrial fibrillation on anticoagulation Hypertension with slightly elevated BP CAD with history of CABG Hemoglobin 12-11.7. Stool for occult blood positive. Plans: Start Protonix 40 mg IV twice a day. Clear liquid diet started by GI. Telemetry monitoring. Appears to be lower GI bleed from description, possible internal hemorrhoids? Discontinue aspirin and Xarelto. Plans for colonoscopy on Sunday. Follow gastroenterology recommendations. BUN 33. Likely due to acute bleed. Plans: Start normal saline at 100 mL/h. Avoid nephrotoxins. Repeat BMP tomorrow morning. [id number] glucose 251. Plans: Start insulin sliding scale. NovoLog 6 units 3 times a day with meals. Regular Accu-Cheks. Hypoglycemic precautions. Paroxysmal. Plans: Continue metoprolol home dose. Avoid anticoagulation due to GI bleed. BP 134/62. Plans: Continue metoprolol and Imdur. Monitor vitals, adjust medications as necessary. Plans: Hold aspirin. Continue beta thi. Continue Lipitor. [Patient admitted for GI bleed. Plans for colonoscopy prep today. Colonoscopy tomorrow. She is pending clinical improvement. Likely DC tomorrow.]
[2019-11-21] MEDS ORDERED: PEG 3350-NA SULF,BICARB,CL/KCL 4,000 ML BOTTLE PO ONE (16:00)
[2019-11-21 17:17] LABS: Glucose,Whole Blood 188 mg/dL (75-99)
--- NOTE | 2019-11-21 18:43 | PN ---
PROGRESS NOTE DATE OF SERVICE: November 21, 2019 Patient is a 73-year-old pleasant white female admitted to the hospital with rectal bleeding. She had intermittent rectal bleeding going on for the last 2 weeks duration, but for the last 2 days, it got much worse and hence came to the emergency room and subsequently admitted to the hospital for further evaluation. She has been on Xarelto at home for recurrent DVT, which has been on hold. Her initial hemoglobin was 12.7 and today it is 11.7 g/dL. No further bleeding since being in the hospital. PHYSICAL EXAMINATION: Appears comfortable, no apparent distress. Vital signs stable. Blood pressure 134/62, pulse 80, temperature 98.6. HEENT examination unremarkable. Conjunctivae pink. Sclerae anicteric. Oral cavity no lesions. NECK: No JVD or lymph node enlargement. Chest was clear to auscultation. HEART: Regular rate and rhythm. ABDOMEN: Soft. Bowel sounds are positive. No organomegaly. EXTREMITIES no pedal edema. SKIN no rashes. NEUROLOGIC: Alert and oriented x3. No focal deficits. LABS: From today WBC 5.8, hemoglobin 11.7, platelets normal. Basic metabolic panel is within normal limits. IMPRESSION: 1. Rectal bleeding for the last 2 weeks duration that has been going on intermittently. Hemoglobin stable at 11.5 g/dL. The patient has been on Xarelto for recurrent DVT, which has been on hold since yesterday morning. Last colonoscopy was 7 or 8 years ago. 2. History of recurrent deep vein thrombosis on Xarelto, currently on hold. RECOMMENDATIONS: 1. We will proceed with colonoscopy tomorrow. 2. Clear liquid diet today. 3. Repeat CBC in the morning. 4. The patient understands risks, benefits and complications of the procedure and she is agreeable to it. Thank you for this consultation. MMODL / IJN: [id number] /
[2019-11-21 20:56] LABS: Glucose,Whole Blood 224 mg/dL (75-99)
[2019-11-21] MEDS: PRAVASTATIN SODIUM 20 MG TAB PO SCH (21:12)
[2019-11-22] MEDS: MELATONIN 5 MG TABLET PO SCH (00:14)
[2019-11-22 03:00] LABS: Glucose,Whole Blood 92 mg/dL (75-99)
[2019-11-22] MEDS: SODIUM CHLORIDE 0.9% 1,000 ML IV SCH ×2 (03:13→07:53)
[2019-11-22] MEDS: LEVOTHYROXINE 125 MCG TAB PO SCH (06:46)
[2019-11-22 06:48] LABS: Glucose,Whole Blood 147 mg/dL (75-99)
[2019-11-22] MEDS: INSULIN ASPART (NovoLOG) 100 UNIT/ML VIAL SQ SCH ×4 (06:48→12:44)
[2019-11-22] MEDS ORDERED: LIDOCAINE 1% INJ 10MG/ML (20 ML MDV) ONE (07:18)
[2019-11-22] MEDS ORDERED: PROPOFOL 10 MG/ML 20 ML VIAL IV ONE (07:18)
[2019-11-22] MEDS ORDERED: IV FLUID CONTINUATION 1,000 ML IV ONE ×2 (07:21)
--- NOTE | 2019-11-22 07:36 | P.PCN ---
Date of Procedure: 11/22/19 Procedure(s) Performed: BRIEF HISTORY: Patient is a 73-year-old pleasant female admitted hospital with rectal bleeding for the last 2 weeks' duration. She has been on Xarelto which has been on hold. Hemoglobin was 7.4 g/dL. She is scheduled for a colonoscopy as a part of evaluation of rectal bleeding. PROCEDURE PERFORMED: Colonoscopy. PREOPERATIVE DIAGNOSIS: Rectal bleeding of 2 weeks duration. IV sedation per Anesthesia. PROCEDURE: After informed consent was obtained, the patient, was brought into the endoscopy unit. IV sedation was administered by Anesthesia under continuous monitoring. Digital rectal examination was normal. Initially the Olympus CF-160 flexible video colonoscope was then inserted in the rectum, gradually advanced into the cecum without any difficulty. Careful examination was performed as the scope was gradually being withdrawn. Ileocecal valve and the appendiceal orifice were visualized and appeared normal. Prep was excellent. Mucosa of the cecum, ascending colon, transverse colon, descending colon, sigmoid colon, and rectum appeared normal. Retroflexion was performed in the rectum and small internal hemorrhoids were seen. The patient tolerated the procedure well. IMPRESSION: Normal-appearing colon from rectum to cecum with no evidence of colorectal bree plasia. Small internal hemorrhoids. RECOMMENDATIONS: Findings of this examination were discussed with the patient as well as her family. Recent bleeding for slightly from internal hemorrhoids. She was advised to be a high-fiber diet and take fiber supplements a regular basis and avoid straining and constipation. Xarelto can be resumed today and she'll be discharged home.
[2019-11-22 08:29] VITALS: RESP 16
[2019-11-22] MEDS: ISOSORBIDE MONONITRATE ER 30 MG TAB.ER.24H PO SCH (08:53)
[2019-11-22] MEDS: PANTOPRAZOLE 40 MG/10 ML VIAL IVP SCH (08:53)
[2019-11-22] MEDS: DULoxetine HCL 30 MG CAPSULE.DR PO SCH (08:53)
[2019-11-22] MEDS: METOPROLOL TARTRATE 25 MG TAB PO SCH (08:54)
--- NOTE | 2019-11-22 11:07 | P.DS ---
Providers Date of admission: 11/21/19 10:47 Expected date of discharge: 11/22/19 Attending physician: Tremaine Schumacher MD Consults: 11/20/19 12:59 Consult Physician Routine Consulting Provider: Jina Pablo Consult Reason/Comments: gi bleed Do you want consulting provider notified?: Yes Primary care physician: [facility] Course: 73-year-old female with PMH of hypertension, CAD post CABG, hypothyroidism, atrial fibrillation on anticoagulation, diabetes mellitus presents to the ED for rectal bleed. Patient reports rectal bleeding that has been ongoing for the past week. Patient states that she is squirting bright red blood out of her rectum without clots. Patient also reports loose stools since Sunday. She denies any melena. Patient reports "falling flat on her face" on Sunday but denies any loss of consciousness. She states that her legs simply gave out. This happened while she was attempting to get out of bed. Patient currently reports a temporal headache. She denies any lower extremity edema, nausea or vomiting, fever or chills, cough, chest pain, shortness of breath, palpitations, changes in urination. She denies any changes in appetite. Patient denies dizziness, numbness/weakness/tingling of the extremities. In the ED, she was hemodynamically stable except for BP slightly elevated at 155/73. CBC was unremarkable. Cognition panel was negative. CMP showed sodium 135, bicarbonate 31, BUN 33, glucose 414. Troponin was less than 0.012, EKG showing sinus bradycardia with T-wave inversion. Stool for occult blood was positive. CT abdomen and pelvis showed periumbilical hernia. Lumbar x-ray showed degenerative disc disease and possible aortic aneurysm. CT of the head and neck showed no acute process. Patient is admitted for rectal bleed with gastroenterology on consultation. Patient's hemoglobin ranged from 12-11.7 during her hospitalization. GI was consulted and recommended a colonoscopy. Colonoscopy showed internal hemorrhoids. Patient had no further rectal bleed during her hospitalization. Patient was seen and examined. No acute events overnight. Patient reports frequent falls that his been ongoing for years. She was initially seen by neurologist and started on treatment for Parkinson's disease. This was discontinued as she was thought to not have a diagnosis of Parkinson's. She is currently being treated for restless leg syndrome and states that her legs occasionally give out leading to frequent falls. She does have a walker at home and does live with her . She denies any chest pain, shortness of breath or palpitations. No nausea or vomiting. No fever or chills. General: [non toxic], [no distress], [appears at stated age] Derm: [warm], [dry] Head: [atraumatic], [normocephalic], [symmetric] Eyes: [EOMI], [no lid lag], [anicteric sclera] Mouth: [no lip lesion], [mucus membranes moist] Cardiovascular: [S1S2 reg], [no murmur], [positive DP pulse bilateral], Lungs: [CTA bilateral], [no rhonchi, no rales] , [no accessory muscle use] Abdominal: [soft], [ nontender to palpation], [no guarding], [no appreciable organomegaly] Ext: [no gross muscle atrophy], [no edema], [no contractures] Neuro: [no focal neuro deficits] Psych: [Alert], [oriented], [appropriate affect] Acute GI bleed Elevated BUN Diabetes mellitus with hyperglycemia Atrial fibrillation on anticoagulation Hypertension with slightly elevated BP CAD with history of CABG Hemoglobin 12-11.7. Stool for occult blood positive. Plans: Colonoscopy shows internal hemorrhoids. Discharged with Protonix by mouth. Patient should be on a high-fiber diet. Restart aspirin and Xarelto. Follow gastroenterology recommendations. BUN 31. Likely due to acute bleed. Plans: Start normal saline at 100 mL/h. Avoid nephrotoxins. Repeat BMP tomorrow morning. [id number] glucose 147. Plans: Start insulin sliding scale. NovoLog 6 units 3 times a day with meals. Regular Accu-Cheks. Hypoglycemic precautions. Paroxysmal. Plans: Continue metoprolol home dose. Avoid anticoagulation due to GI bleed. BP 172/73. Plans: Continue metoprolol and Imdur. Monitor vitals, adjust medications as necessary. Plans: Hold aspirin. Continue beta thi. Continue Lipitor. [Patient admitted for GI bleed. Colonoscopy shows internal hemorrhoids. Can restart aspirin and Xarelto. Discussed results with patient and . Discharge today. This complex discharge took about 35 minutes to complete.] Pertinent Studies: CT head, CT C-spine, CT abdomen and pelvis, lumbar x-ray Procedures: Colonoscopy Patient Condition at Discharge: Stable Plan - Discharge Summary New Discharge Prescriptions: Continue Furosemide [Lasix] 20 mg PO DAILY PRN PRN Reason: SWELLING Cholecalciferol [Vitamin D3 (25 Mcg = 1000 Iu)] 1,000 unit PO DAILY Insulin Lispro [humaLOG Kwikpen] 6 unit SQ AC-TID Insulin Detemir [Levemir Flextouch] 34 units SQ HS Pantoprazole [Protonix] 40 mg PO DAILY Cyanocobalamin [Vitamin B-12] 500 mcg PO DAILY Rivaroxaban [Xarelto] 20 mg PO DAILY Potassium Gluconate 99 mg PO DAILY Ferrous Sulfate [Iron (65 MG Elemental)] 325 mg PO DAILY Aspirin EC [Ecotrin Low Dose] 81 mg PO DAILY Metoprolol Tartrate [Lopressor] 25 mg PO BID Pravastatin Sodium [Pravachol] 10 mg PO HS Isosorbide Mononitrate ER [Imdur] 30 mg PO DAILY Melatonin 5 mg PO HS Levothyroxine Sodium [Synthroid] 125 mcg PO DAILY DULoxetine HCL [Cymbalta] 30 mg PO DAILY Discharge Medication List Furosemide [Lasix] 20 mg PO DAILY PRN 08/25/14 [History] Cholecalciferol [Vitamin D3 (25 Mcg = 1000 Iu)] 1,000 unit PO DAILY 10/03/15 [History] Cyanocobalamin [Vitamin B-12] 500 mcg PO DAILY 10/04/15 [History] Insulin Detemir [Levemir Flextouch] 34 units SQ HS 10/04/15 [History] Insulin Lispro [humaLOG Kwikpen] 6 unit SQ AC-TID 10/04/15 [History] Pantoprazole [Protonix] 40 mg PO DAILY 10/04/15 [History] Rivaroxaban [Xarelto] 20 mg PO DAILY 03/04/19 [History] Aspirin EC [Ecotrin Low Dose] 81 mg PO DAILY 11/20/19 [History] DULoxetine HCL [Cymbalta] 30 mg PO DAILY 11/20/19 [History] Ferrous Sulfate [Iron (65 MG Elemental)] 325 mg PO DAILY 11/20/19 [History] Isosorbide Mononitrate ER [Imdur] 30 mg PO DAILY 11/20/19 [History] Levothyroxine Sodium [Synthroid] 125 mcg PO DAILY 11/20/19 [History] Melatonin 5 mg PO HS 11/20/19 [History] Metoprolol Tartrate [Lopressor] 25 mg PO BID 11/20/19 [History] Potassium Gluconate 99 mg PO DAILY 11/20/19 [History] Pravastatin Sodium [Pravachol] 10 mg PO HS 11/20/19 [History] Follow up Appointment(s)/Referral(s): Yuridia Niño MD [Primary Care Provider] - 1-2 days Jina Pablo MD [STAFF PHYSICIAN] - 1 Week Patient Instructions/Handouts: High Fiber Diet (DC) Activity/Diet/Wound Care/Special Instructions: Diet: High-fiber Follow-up PCP within 3 days of discharge. Follow-up with GI within 1 week of discharge. Take all medications as advised. Discharge Disposition: HOME SELF-CARE
[2019-11-22 12:08] VITALS: BP 160/76; PULSE 67; TEMP 98
[2019-11-22 12:25] LABS: Glucose,Whole Blood 319 mg/dL (75-99)
[2019-11-22 13:11] LABS: Glucose,Whole Blood 344 mg/dL (75-99)
[2019-11-22 13:47] LABS: Glucose,Whole Blood 334 mg/dL (75-99)
[2019-11-22] MEDS ORDERED: INSULIN ASPART (NovoLOG) 100 UNIT/ML VIAL SQ ONE (13:47)
[2019-11-22 14:33] LABS: Glucose,Whole Blood 249 mg/dL (75-99)
== END 2019-11-22 14:56 | disposition home or self-care (01) | DRG 395 ==
LOC: EC 10:07 → 3SCARD 13:12 → OBSVTOIN 11-21 10:47
PROVIDERS: ADMIT Internal Medicine; ATTEND Internal Medicine
PROC: 0DJD8ZZ Inspection of Lower Intestinal Tract, Via Natural or Artificial Opening Endoscopic (ICD-10-PCS; principal; 2019-11-22 07:40)
DX: K64.8 Other hemorrhoids (principal); E03.9 Hypothyroidism, unspecified; E11.65 Type 2 diabetes mellitus with hyperglycemia; E78.5 Hyperlipidemia, unspecified; F41.9 Anxiety disorder, unspecified; G20 Parkinson's disease; G25.81 Restless legs syndrome; I10 Essential (primary) hypertension; I25.10 Atherosclerotic heart disease of native coronary artery without angina pectoris; J44.9 Chronic obstructive pulmonary disease, unspecified; K42.9 Umbilical hernia without obstruction or gangrene; M51.36 Other intervertebral disc degeneration, lumbar region; Z91.81 History of falling; Z79.01 Long term (current) use of anticoagulants; Z79.4 Long term (current) use of insulin; Z79.82 Long term (current) use of aspirin; Z79.890 Hormone replacement therapy; Z79.899 Other long term (current) drug therapy; Z82.3 Family history of stroke; Z82.49 Family history of ischemic heart disease and other diseases of the circulatory system; Z83.3 Family history of diabetes mellitus; Z85.42 Personal history of malignant neoplasm of other parts of uterus; Z86.711 Personal history of pulmonary embolism; Z86.718 Personal history of other venous thrombosis and embolism; Z90.710 Acquired absence of both cervix and uterus; Z92.3 Personal history of irradiation; Z95.1 Presence of aortocoronary bypass graft; Z96.653 Presence of artificial knee joint, bilateral; R29.6 Repeated falls; Z88.8 Allergy status to other drugs, medicaments and biological substances; Z87.01 Personal history of pneumonia (recurrent); I48.0 Paroxysmal atrial fibrillation
CPT/HCPCS: 36415; 45378; 70450; 72100; 72125; 74177; 80053; 82272; 83605; 84484; 85025; 85730; 86850; 86900; 86901; 87324; 93005; 96361; 96374; 99285

== ENCOUNTER → 2019-12-05 | Outpatient (CLI) | payer MEDICARE ==
[~2019-12-05] MED LIST: IODINE/POTASS IOD (LUGOLS) BOTTLE TOPICAL ONE
--- NOTE | 2019-12-05 16:01 | NM ---
EXAMINATION TYPE: NM DatScan Brain SPECT DATE OF EXAM: 12/05/2019 COMPARISON: NONE HISTORY: Tremors TECHNIQUE: 10 drops of Lugol's solution was administered 1 hour prior to injection as a thyroid bloc edgar agent. After the administration of 4.5 mCi I-123 Ioflupane DaTscan. Images obtained [address] injection. SPECT images of the brain were acquired with axial and coronal reconstructions. FINDINGS: The axial SPECT images demonstrate increased background activity and reduced activity withi n the bilateral striata. IMPRESSION: Abnormal appearance highly suggestive of idiopathic Parkinson's disease or Parkinsonian s yndrome.
== END | disposition home or self-care (01) ==
LOC: RADNMMAIN 10:24
PROVIDERS: ATTEND Family Medicine
DX: G93.9 Disorder of brain, unspecified (principal)
CPT/HCPCS: 78803; A9584

== ENCOUNTER 2020-03-03 07:08 | Emergency (ER) | payer MEDICARE ==
[2020-03-03 07:14] VITALS: RESP 18; TEMP 98.2
[2020-03-03] MEDS ORDERED: FLUORESCEIN STRIPS 1 MG STRIP RIGHT EYE ONE (07:31)
[2020-03-03] MEDS ORDERED: PROPARACAINE 0.5% OPHTH DROPS 15 ML BTL RIGHT EYE STA (07:31)
--- NOTE | 2020-03-03 07:40 | ED ---
General Adult HPI - General Chief complaint: Fall Stated complaint: Fell, eye injury Time Seen by Provider: 03/03/20 07:10 Source: patient, RN notes reviewed, old records reviewed Mode of arrival: wheelchair Limitations: no limitations - History of Present Illness Initial comments: This is a 74-year-old female presents emergency Department complaining of right eye pain. Patient states she stumbled over her walker this morning and the walker hit her in the right eye and since then her on his been hurting her. Patient was also noted is been tearing as well. Patient states she is on Xarelto. Patient states she does not have a headache and does not complain of any neck pain. Patient's only complaint is eye pain. Patient denies any numbness or weakness. Patient states she has normal range of motion of her neck without eliciting any pain. Patient denies any other injury at this time. Patient states she does have a tetanus up-to-date. Patient states this fall occurred at 2:30 this morning - Related Data Home Medications Medication Instructions Recorded Confirmed Furosemide [Lasix] 20 mg PO DAILY PRN 08/25/14 03/03/20 Cholecalciferol [Vitamin D3 (25 1,000 unit PO DAILY 10/03/15 03/03/20 Mcg = 1000 Iu)] Cyanocobalamin [Vitamin B-12] 500 mcg PO DAILY 10/04/15 03/03/20 Insulin Detemir [Levemir Flextouch] 34 units SQ HS 10/04/15 03/03/20 Insulin Lispro [humaLOG Kwikpen] 6 unit SQ AC-TID 10/04/15 03/03/20 Pantoprazole [Protonix] 40 mg PO DAILY 10/04/15 03/03/20 Rivaroxaban [Xarelto] 20 mg PO DAILY 03/04/19 03/03/20 Aspirin EC [Ecotrin Low Dose] 81 mg PO DAILY 11/20/19 03/03/20 DULoxetine HCL [Cymbalta] 30 mg PO DAILY 11/20/19 03/03/20 Ferrous Sulfate [Iron (65 MG 325 mg PO DAILY 11/20/19 03/03/20 Elemental)] Isosorbide Mononitrate ER [Imdur] 30 mg PO DAILY 11/20/19 03/03/20 Levothyroxine Sodium [Synthroid] 125 mcg PO DAILY 11/20/19 03/03/20 Melatonin 5 mg PO HS 11/20/19 03/03/20 Metoprolol Tartrate [Lopressor] 25 mg PO BID 11/20/19 03/03/20 Potassium Gluconate 99 mg PO DAILY 11/20/19 03/03/20 Pravastatin Sodium [Pravachol] 10 mg PO HS 11/20/19 03/03/20 Previous Rx's Medication Instructions Recorded Tobramycin 0.3% Ophth Soln [Tobrex 1 drop RIGHT EYE Q6H 4 Days ml 03/03/20 0.3% Ophth Soln] Allergies Allergy/AdvReac Type Severity Reaction Status Date / Time losartan [Losartan] AdvReac Cough Verified 03/03/20 08:29 Review of Systems ROS Statement: Those systems with pertinent positive or pertinent negative responses have been documented in the HPI. ROS Other: All systems not noted in ROS Statement are negative. Past Medical History Past Medical History: Cancer, Chest Pain / Angina, COPD, Diabetes Mellitus, Deep Vein Thrombosis (DVT), GERD/Reflux, Hyperlipidemia, Hypertension, Pneumonia, Pulmonary Embolus (PE), Thyroid Disorder Additional Past Medical History / Comment(s): DVT X2 LAST ONE 08/2014, HX UTERINE CA, RADIATION. IRON DEFECIENCY ANEMIA. 3 BLOOD CLOTS TO RIGHT LEG IN THE PAST. Parkinsons History of Any Multi-Drug Resistant Organisms: None Reported Past Surgical History: Adenoidectomy, Appendectomy, Hysterectomy, Orthopedic Surgery, Tonsillectomy Additional Past Surgical History / Comment(s): breast reduction, chin lift, lisette knee replacement Past Anesthesia/Blood Transfusion Reactions: No Reported Reaction Past Psychological History: Anxiety Smoking Status: Never smoker Past Alcohol Use History: Occasional Past Drug Use History: None Reported - Past Family History Sister(s) Family Medical History: Diabetes Mellitus Father Additional Family Medical History / Comment(s): Stroke Mother Family Medical History: Congestive Heart Failure (CHF) General Exam - General Exam Comments Initial Comments: GENERAL: Patient is well-developed and well-nourished. Patient is nontoxic and well- hydrated and is in no acute distress. ENT: Neck is soft and supple. No significant lymphadenopathy is noted. Oropharynx is clear. Moist mucous membranes. Neck has full range of motion without eliciting any pain. EYES: Conjunctiva are injected. Extraocular movements were intact and pupils were equal round and reactive to light. Upper eyelid on the right was erythematous. I used a Wood's lamp to examine the patient's eye she has a very large corneal abrasion which almost is the entire cornea. PULMONARY: Unlabored respirations. Good breath sounds bilaterally. No audible rales rhonchi or wheezing was noted. CARDIOVASCULAR: There is a regular rate and rhythm without any murmurs gallops or rubs. Femoral pulses are equal bilaterally SKIN: Skin is clear with no lesions or rashes and otherwise unremarkable. NEUROLOGIC: Patient is alert and oriented x3. Cranial nerves II through XII are grossly intact. Motor and sensory are also intact. Normal speech, volume and content. Symmetrical smile. MUSCULOSKELETAL: Normal extremities with adequate strength and full range of motion. LYMPHATICS: No significant lymphadenopathy is noted PSYCHIATRIC: Normal psychiatric evaluation. Limitations: no limitations Course Vital Signs 03/03/20 07:11 Temperature 98.2 F Pulse Rate 81 Respiratory 18 Rate Blood Pressure 147/83 O2 Sat by Pulse 99 Oximetry Medical Decision Making - Medical Decision Making CT of the C-spine and brain were negative. I used a Woody lamp with proparacaine and fluorescein and the patient had a very large corneal abrasion and also appeared that the patient had a traumatic iritis. Disposition Clinical Impression: Traumatic iritis, Corneal abrasion Disposition: HOME SELF-CARE Condition: Good Instructions (If sedation given, give patient instructions): Corneal Abrasion (ED) Additional Instructions: Patient should follow-up with her [facility] [employer] within 24 hours Prescriptions: Tobramycin 0.3% Ophth Soln [Tobrex 0.3% Ophth Soln] 1 drop RIGHT EYE Q6H 4 Days ml Is patient prescribed a controlled substance at d/c from ED?: No Time of Disposition: 08:53
--- NOTE | 2020-03-03 08:44 | CT ---
EXAMINATION TYPE: CT brain cspine wo con DATE OF EXAM: 03/03/2020 COMPARISON: 11/20/2019 HISTORY: 74-year-old female Fall, bruising and swelling to Rt eye CT DLP: 1459.2 mGycm Automated exposure control for dose reduction was used. Technique: Examination of the head was done in axial plane without intravenous contrast. Coronal and sagittal reconstructions performed. CT of the cervical spine was obtained in axial plane without intravenous injection of contrast mater ial. Coronal and sagittal reformatted images were obtained from the axial views for evaluation of f ractures, spinal alignment and canal. FINDINGS: Head: There is no evidence of acute intracranial hemorrhage, acute ischemic changes, mass, mass-effect, or extra-axial fluid collection. There is no effacement of cerebral sulci or basal subarachnoid cister ns. There is no hydrocephalus. There is no midline shift. Vila-white matter distinction is preserv ed. Mild generalized atrophy. Patchy white matter hypodensities in the cerebral hemispheres. Partially em pty sella. Benign basal ganglionic calcifications. Mild right-sided preseptal soft tissue swelling. Trace mucosal thickening ethmoid air cells. Mastoid air cells are pneumatized. No calvarial fracture. Cervical spine: No craniocervical junction anomaly, predental space widening, or prevertebral soft tissue swelling. Preserved alignment of the cervical spine. No acute fracture of the cervical spine. Mild multilevel degenerative disc disease with disc interspace narrowing and discussed by complex for mohamud. Disc osteophyte complex is present of the ventral thecal sac at multiple levels. Uncovertebral joint arthropathy mid to lower cervical spine. Variable mild to moderate neuroforaminal stenosis mid to lower cervical spine. Sagittal and coronal reformatted images confirm above findings. COMBINED IMPRESSION: 1. Mild generalized atrophy and changes of chronic small vessel ischemic disease. No acute intracrani al abnormality seen. 2. No acute fracture or malalignment of the cervical spine. Moderate multilevel spondylotic change. 3. Mild preseptal soft tissue swelling.
[2020-03-03 09:02] VITALS: BP 141/79; PULSE 88
== END 2020-03-03 09:00 | disposition home or self-care (01) ==
LOC: EC 07:08
DX: S05.01XA Injury of conjunctiva and corneal abrasion without foreign body, right eye, initial encounter (principal); H20.9 Unspecified iridocyclitis; E11.9 Type 2 diabetes mellitus without complications; K21.9 Gastro-esophageal reflux disease without esophagitis; E78.5 Hyperlipidemia, unspecified; I10 Essential (primary) hypertension; E07.9 Disorder of thyroid, unspecified; F41.9 Anxiety disorder, unspecified; Z86.718 Personal history of other venous thrombosis and embolism; Z86.711 Personal history of pulmonary embolism; Z85.42 Personal history of malignant neoplasm of other parts of uterus; Z96.653 Presence of artificial knee joint, bilateral; Z79.4 Long term (current) use of insulin; Z79.01 Long term (current) use of anticoagulants; Z79.52 Long term (current) use of systemic steroids; Z79.890 Hormone replacement therapy; Z79.899 Other long term (current) drug therapy; Z88.8 Allergy status to other drugs, medicaments and biological substances; W01.198A Fall on same level from slipping, tripping and stumbling with subsequent striking against other object, initial encounter; Y93.01 Activity, walking, marching and hiking
CPT/HCPCS: 70450; 72125; 99284

== ENCOUNTER → 2020-06-04 | Outpatient (CLI) | payer MEDICARE ==
[2020-06-04 18:43] LABS: Hemoglobin A1C 14.8 % (4.0-6.0)
[2020-06-04 18:46] LABS: African American GFR (CKD) 38.8 (60.0-200.0); Albumin 3.8 g/dL (3.80-4.90); Albumin/Globulin Ratio 1.65 (1.60-3.17); Anion Gap 8.3 mmol/L (4.00-12.00); Calcium 9.4 mg/dL (8.7-10.3); Carbon Dioxide 31.7 mmol/L (21.6-31.8); Chol/HDL Ratio 5.71; Globulin 2.3 g/dL (1.6-3.3); LDL Cholesterol,Calculated 74.2 mg/dL (0.0-131.0); Non-African American GFR(CKD) 33.5 (60.0-200.0); Potassium 5.1 mmol/L (3.5-5.5); Total Bilirubin 0.7 mg/dL (0.3-1.2); Total Protein 6.1 g/dL (6.2-8.2); VLDL Calculation 71.8 mg/dL (5.00-40.00)
[2020-06-04 18:51] LABS: Urine Creatinine 79.5 mg/dL
== END | disposition home or self-care (01) ==
LOC: LABWHC1 08:13
PROVIDERS: ATTEND Internal Medicine Endocrinology, Diabetes & Metabolism
DX: E11.65 Type 2 diabetes mellitus with hyperglycemia (principal)
CPT/HCPCS: 36415; 80053; 80061; 82043; 82570; 83036; 84443

== ENCOUNTER 2020-06-13 10:12 | Emergency (ER) | payer MEDICARE ==
[2020-06-13 10:16] VITALS: TEMP 98.1
[2020-06-13] MEDS ORDERED: SODIUM CHLORIDE 0.9% 1,000 ML IV STA ×2 (10:36→11:37)
[2020-06-13] MEDS ORDERED: MORPHINE SULFATE 2 MG/ML SYRINGE IVP STA (10:36)
[2020-06-13] MEDS ORDERED: ONDANSETRON 4 MG/2 ML VIAL IVP STA (10:36)
--- NOTE | 2020-06-13 10:44 | ED ---
General Adult HPI - General Chief complaint: Urogenital Stated complaint: Kidney infection Time Seen by Provider: 06/13/20 10:17 Source: patient, RN notes reviewed Mode of arrival: ambulatory Limitations: no limitations - History of Present Illness Initial comments: 74-year-old female presents to the emergency room for a chief complaint kidney infection. Patient was told by her primary care that she likely has a kidney infection. She has been having diarrhea for about 5 days now. She has also had lower abdominal pain that is now right upper abdominal pain. Pain migrated upwards today. Patient also admits to nausea for the past 5 days. Patient denies any fevers. Denies dysuria. Primary care when a patient seen in the emergency department for rehydration therapy. Patient has no other complaints at this time including shortness of breath, chest pain, nausea or vomiting, headache, or visual changes. - Related Data Home Medications Medication Instructions Recorded Confirmed Furosemide [Lasix] 20 mg PO DAILY PRN 08/25/14 03/03/20 Cholecalciferol [Vitamin D3 (25 1,000 unit PO DAILY 10/03/15 03/03/20 Mcg = 1000 Iu)] Cyanocobalamin [Vitamin B-12] 500 mcg PO DAILY 10/04/15 03/03/20 Insulin Detemir [Levemir Flextouch] 34 units SQ HS 10/04/15 03/03/20 Insulin Lispro [humaLOG Kwikpen] 6 unit SQ AC-TID 10/04/15 03/03/20 Pantoprazole [Protonix] 40 mg PO DAILY 10/04/15 03/03/20 Rivaroxaban [Xarelto] 20 mg PO DAILY 03/04/19 03/03/20 Aspirin EC [Ecotrin Low Dose] 81 mg PO DAILY 11/20/19 03/03/20 DULoxetine HCL [Cymbalta] 30 mg PO DAILY 11/20/19 03/03/20 Ferrous Sulfate [Iron (65 MG 325 mg PO DAILY 11/20/19 03/03/20 Elemental)] Isosorbide Mononitrate ER [Imdur] 30 mg PO DAILY 11/20/19 03/03/20 Levothyroxine Sodium [Synthroid] 125 mcg PO DAILY 11/20/19 03/03/20 Melatonin 5 mg PO HS 11/20/19 03/03/20 Metoprolol Tartrate [Lopressor] 25 mg PO BID 11/20/19 03/03/20 Potassium Gluconate 99 mg PO DAILY 11/20/19 03/03/20 Pravastatin Sodium [Pravachol] 10 mg PO HS 11/20/19 03/03/20 Previous Rx's Medication Instructions Recorded Tobramycin 0.3% Ophth Soln [Tobrex 1 drop RIGHT EYE Q6H 4 Days ml 03/03/20 0.3% Ophth Soln] Cephalexin [Keflex] 500 mg PO Q6HR 10 Days #40 cap 06/13/20 Allergies Allergy/AdvReac Type Severity Reaction Status Date / Time losartan [Losartan] AdvReac Cough Verified 06/13/20 10:13 Review of Systems ROS Statement: Those systems with pertinent positive or pertinent negative responses have been documented in the HPI. ROS Other: All systems not noted in ROS Statement are negative. Past Medical History Past Medical History: Cancer, Chest Pain / Angina, COPD, Diabetes Mellitus, Deep Vein Thrombosis (DVT), GERD/Reflux, Hyperlipidemia, Hypertension, Pneumonia, Pulmonary Embolus (PE), Thyroid Disorder Additional Past Medical History / Comment(s): DVT X2 LAST ONE 08/2014, HX UTERINE CA, RADIATION. IRON DEFECIENCY ANEMIA. 3 BLOOD CLOTS TO RIGHT LEG IN THE PAST. Parkinsons History of Any Multi-Drug Resistant Organisms: None Reported Past Surgical History: Adenoidectomy, Appendectomy, Hysterectomy, Orthopedic Surgery, Tonsillectomy Additional Past Surgical History / Comment(s): breast reduction, chin lift, lisette knee replacement Past Anesthesia/Blood Transfusion Reactions: No Reported Reaction Past Psychological History: Anxiety Smoking Status: Never smoker Past Alcohol Use History: Occasional Past Drug Use History: None Reported - Past Family History Sister(s) Family Medical History: Diabetes Mellitus Father Additional Family Medical History / Comment(s): Stroke Mother Family Medical History: Congestive Heart Failure (CHF) General Exam Limitations: no limitations General appearance: alert, in no apparent distress Head exam: Present: atraumatic, normocephalic, normal inspection Eye exam: Present: normal appearance, PERRL, EOMI. Absent: scleral icterus, conjunctival injection, periorbital swelling ENT exam: Present: normal exam, mucous membranes moist Neck exam: Present: normal inspection, full ROM. Absent: tenderness, meni ngismus, lymphadenopathy Respiratory exam: Present: normal lung sounds bilaterally. Absent: respiratory distress, wheezes, rales, rhonchi, stridor Cardiovascular Exam: Present: regular rate, normal rhythm, normal heart sounds. Absent: systolic murmur, diastolic murmur, rubs, gallop, clicks GI/Abdominal exam: Present: soft, tenderness (minimal RUQ tenderness, neg perez sign), normal bowel sounds. Absent: distended, guarding, rebound, rigid Neurological exam: Present: alert Course Vital Signs 06/13/20 06/13/20 10:13 11:44 Temperature 98.1 F Pulse Rate 75 74 Respiratory 18 18 Rate Blood Pressure 160/77 152/77 O2 Sat by Pulse 98 97 Oximetry Medical Decision Making - Medical Decision Making Vitals are stable. Patient has minimal abdominal tenderness. CBC is unremark able. CMP does show an elevated potassium of 5.4. Dehydration noted with a BUN of 34, patient was given 2 L of fluids. Patient does have hyperglycemia of 517. Anion gap is 9, no ketones in the urine, no evidence of DKA. Reports she has not been checking her glucose at home. Fluids did improve patient's glucose. She was given subcutaneous insulin. Lactic acidosis is likely related to this dehydration. Patient does also have a urinary tract infection. She was given Rocephin. She'll be treated outpatient with Keflex. Primary care did initially recommend ultrasound to rule out obstruction however given the patient's pain was lower and now has tenderness in the upper abdomen and did do a CT to rule out obstruction and evaluate bowels. CT is unremarkable. Patient will follow-up with her doctor. I discussed that she needs to start checking her glucose and she is agreeable to this. She will return here for any worsening symptoms. - Lab Data Result diagrams: 06/13/20 10:40 06/13/20 10:40 Lab Results 06/13/20 06/13/20 06/13/20 Range/Units 10:40 10:40 10:40 WBC 5.2 (3.8-10.6) k/uL RBC 4.73 (3.80-5.40) m/uL Hgb 13.8 (11.4-16.0) gm/dL Hct 43.2 (34.0-46.0) % MCV 91.4 (80.0-100.0) fL MCH 29.1 (25.0-35.0) pg MCHC 31.8 (31.0-37.0) g/dL RDW 13.0 (11.5-15.5) % Plt Count 171 (150-450) k/uL Neutrophils % 53 % Lymphocytes % 32 % Monocytes % 7 % Eosinophils % 4 % Basophils % 1 % Neutrophils # 2.8 (1.3-7.7) k/uL Lymphocytes # 1.7 (1.0-4.8) k/uL Monocytes # 0.4 (0-1.0) k/uL Eosinophils # 0.2 (0-0.7) k/uL Basophils # 0.0 (0-0.2) k/uL Sodium 133 L (137-145) mmol/L Potassium 5.4 H (3.5-5.1) mmol/L Chloride 95 L (98-107) mmol/L Carbon Dioxide 29 (22-30) mmol/L Anion Gap 9 mmol/L BUN 34 H (7-17) mg/dL Creatinine 0.89 (0.52-1.04) mg/dL Est GFR (CKD-EPI)AfAm 73 (>60 ml/min/1.73 sqM) Est GFR (CKD-EPI)NonAf 63 (>60 ml/min/1.73 sqM) Glucose 517 H* (74-99) mg/dL POC Glucose (mg/dL) (75-99) mg/dL POC Glu Business Supervisor ID Plasma Lactic Acid Jaquan (0.7-2.0) mmol/L Calcium 9.8 (8.4-10.2) mg/dL Total Bilirubin 0.8 (0.2-1.3) mg/dL AST 33 (14-36) U/L ALT 23 (4-34) U/L Alkaline Phosphatase 133 H (38-126) U/L Total Protein 6.8 (6.3-8.2) g/dL Albumin 3.9 (3.5-5.0) g/dL Amylase 60 (30-110) U/L Lipase 149 (23-300) U/L Urine Color Light Yellow Urine Appearance Clear (Clear) Urine pH 5.5 (5.0-8.0) Ur Specific [place] 1.025 (1.001-1.035) Urine Protein Negative (Negative) Urine Glucose (UA) 4+ H (Negative) Urine Ketones Negative (Negative) Urine Blood Trace H (Negative) Urine Nitrite Negative (Negative) Urine Bilirubin Negative (Negative) Urine Urobilinogen <2.0 (<2.0) mg/dL Ur Leukocyte Esterase Moderate H (Negative) Urine RBC 2 (0-5) /hpf Urine WBC 20 H (0-5) /hpf Ur Squamous Epith Cells 1 (0-4) /hpf 06/13/20 06/13/20 Range/Units 10:40 11:44 WBC (3.8-10.6) k/uL RBC (3.80-5.40) m/uL Hgb (11.4-16.0) gm/dL Hct (34.0-46.0) % MCV (80.0-100.0) fL MCH (25.0-35.0) pg MCHC (31.0-37.0) g/dL RDW (11.5-15.5) % Plt Count (150-450) k/uL Neutrophils % % Lymphocytes % % Monocytes % % Eosinophils % % Basophils % % Neutrophils # (1.3-7.7) k/uL Lymphocytes # (1.0-4.8) k/uL Monocytes # (0-1.0) k/uL Eosinophils # (0-0.7) k/uL Basophils # (0-0.2) k/uL Sodium (137-145) mmol/L Potassium (3.5-5.1) mmol/L Chloride (98-107) mmol/L Carbon Dioxide (22-30) mmol/L Anion Gap mmol/L BUN (7-17) mg/dL Creatinine (0.52-1.04) mg/dL Est GFR (CKD-EPI)AfAm (>60 ml/min/1.73 sqM) Est GFR (CKD-EPI)NonAf (>60 ml/min/1.73 sqM) Glucose (74-99) mg/dL POC Glucose (mg/dL) 399 H (75-99) mg/dL POC Glu Business Supervisor ID Tuyet Haq Plasma Lactic Acid Jaquan 3.8 H* (0.7-2.0) mmol/L Calcium (8.4-10.2) mg/dL Total Bilirubin (0.2-1.3) mg/dL AST (14-36) U/L ALT (4-34) U/L Alkaline Phosphatase (38-126) U/L Total Protein (6.3-8.2) g/dL Albumin (3.5-5.0) g/dL Amylase (30-110) U/L Lipase (23-300) U/L Urine Color Urine Appearance (Clear) Urine pH (5.0-8.0) Ur Specific [place] (1.001-1.035) Urine Protein (Negative) Urine Glucose (UA) (Negative) Urine Ketones (Negative) Urine Blood (Negative) Urine Nitrite (Negative) Urine Bilirubin (Negative) Urine Urobilinogen (<2.0) mg/dL Ur Leukocyte Esterase (Negative) Urine RBC (0-5) /hpf Urine WBC (0-5) /hpf Ur Squamous Epith Cells (0-4) /hpf Disposition Clinical Impression: Urinary tract infection, Hyperglycemia Disposition: HOME SELF-CARE Condition: Good Instructions (If sedation given, give patient instructions): Urinary Tract Infection in Women (ED), Diabetic Hyperglycemia (ED) Additional Instructions: Please check your glucose regularly and use your insulin as directed. Drink plenty of water. Take antibiotic as directed. Follow-up with your doctor tomorrow. Return to the emergency room for any worsening symptoms. Prescriptions: Cephalexin [Keflex] 500 mg PO Q6HR 10 Days #40 cap Is patient prescribed a controlled substance at d/c from ED?: No Referrals: Yuridia Niño MD [Primary Care Provider] - 1-2 days Time of Disposition: 12:36
[2020-06-13 11:12] LABS: Basophils % (A) 1 %; Eosinophils # (A) 0.2 k/uL (0-0.7); Eosinophils % (A) 4 %; HCT 43.2 % (34.0-46.0); HGB 13.8 gm/dL (11.4-16.0); Lymphocytes # (A) 1.7 k/uL (1.0-4.8); Lymphocytes % (A) 32 %; MCH 29.1 pg (25.0-35.0); MCHC 31.8 g/dL (31.0-37.0); MCV 91.4 fL (80.0-100.0); Mean Platelet Volume 8.4; Monocytes # (A) 0.4 k/uL (0-1.0); Monocytes % (A) 7 %; Neutrophils # (A) 2.8 k/uL (1.3-7.7); Neutrophils % (A) 53 %; Platelet Count 171 k/uL (150-450); RBC 4.73 m/uL (3.80-5.40); WBC 5.2 k/uL (3.8-10.6)
[2020-06-13 11:16] LABS: Appearance,Urine Clear (Clear); Bilirubin,Urine Negative (Negative); Blood,Urine Trace (Negative); Color,Urine Light Yellow; Glucose,Urine (UA) 4+ (Negative); Ketones,Urine Negative (Negative); Leukocyte Esterase,Urine Moderate (Negative); Nitrite,Urine Negative (Negative); PH, Urine 5.5 (5.0-8.0); Protein,Urine Negative (Negative); RBC,Urine 2 /hpf (0-5); Specific Gravity,Urine 1.025 (1.001-1.035); Squamous Epithelial Cell,Urine 1 /hpf (0-4); Urobilinogen,Urine <2.0 mg/dL (<2.0); WBC,Urine 20 /hpf (0-5)
[2020-06-13 11:18] LABS: Albumin 3.9 g/dL (3.5-5.0); Calcium 9.8 mg/dL (8.4-10.2); Potassium 5.4 mmol/L (3.5-5.1); Total Bilirubin 0.8 mg/dL (0.2-1.3); Total Protein 6.8 g/dL (6.3-8.2)
--- NOTE | 2020-06-13 11:23 | CT ---
EXAMINATION TYPE: CT abdomen pelvis wo con DATE OF EXAM: 06/13/2020 COMPARISON: 11/20/2019 HISTORY: RUQ pain CT DLP: 532.2 mGycm Automated exposure control for dose reduction was used. TECHNIQUE: Helical acquisition of images was performed from the lung bases through the pelvis. FINDINGS: LUNG BASES: Subsegmental lower lobe consolidation most typical of atelectasis. Heart is enlarged. LIVER/GB: No significant abnormality is appreciated. PANCREAS: No significant abnormality is seen. SPLEEN: No significant abnormality is seen. ADRENALS: No significant abnormality is seen. KIDNEYS: No significant abnormality is seen. ADENOPATHY: None visualized. OSSEOUS STRUCTURES: Hypertrophic and degenerative change of the spine seen with a grade 1 anterolist hesis of L4 on L5. Multilevel facet arthropathy. Disc protrusions L3-L4. Multilevel canal stenosis jovel spected. Arthropathy of the hips. BOWEL: Bowel gas pattern nonspecific. Retained fecal debris throughout the right colon. Appendix not seen with certainty. Rectum low-lying in position correlate for rectocele. OTHER: Aorta of normal caliber. There is atherosclerotic change aorta and its branch vessels. Small f at-containing hernia. Subcutaneous edema noted. Correlate for symptoms. Sternotomy wires noted. IMPRESSION: 1. Nonspecific gas pattern with no evidence of obstruction.
[2020-06-13] MEDS ORDERED: INSULIN REGULAR 100 UNIT/ML VIAL IV STA (11:32)
[2020-06-13] MEDS ORDERED: cefTRIAXone IN SWFI 1,000 MG/10 ML SYRINGE IVP STA (11:33)
[2020-06-13 11:45] VITALS: BP 152/77
[2020-06-13 11:46] LABS: Glucose,Whole Blood 399 mg/dL (75-99)
[2020-06-13] MEDS ORDERED: INSULIN ASPART (NovoLOG) 100 UNIT/ML VIAL SQ STA (11:49)
[2020-06-13] MEDS ORDERED: KETOROLAC 15 MG/ML 1 ML VIAL IVP STA (12:43)
[2020-06-13 12:49] LABS: Glucose,Whole Blood 364 mg/dL (75-99)
[2020-06-13 13:05] VITALS: PULSE 71; RESP 16
== END 2020-06-13 13:05 | disposition home or self-care (01) ==
LOC: EC 10:12
DX: N39.0 Urinary tract infection, site not specified (principal); E87.5 Hyperkalemia; E86.0 Dehydration; E87.2 Acidosis; E11.65 Type 2 diabetes mellitus with hyperglycemia; I10 Essential (primary) hypertension; E07.9 Disorder of thyroid, unspecified; K21.9 Gastro-esophageal reflux disease without esophagitis; I26.99 Other pulmonary embolism without acute cor pulmonale; I20.9 Angina pectoris, unspecified; F41.9 Anxiety disorder, unspecified; D50.9 Iron deficiency anemia, unspecified; E78.5 Hyperlipidemia, unspecified; Z79.890 Hormone replacement therapy; Z79.899 Other long term (current) drug therapy; Z79.4 Long term (current) use of insulin; Z79.01 Long term (current) use of anticoagulants; Z79.82 Long term (current) use of aspirin; Z88.8 Allergy status to other drugs, medicaments and biological substances; Z90.89 Acquired absence of other organs; Z90.710 Acquired absence of both cervix and uterus; Z96.653 Presence of artificial knee joint, bilateral; Z86.718 Personal history of other venous thrombosis and embolism; Z85.42 Personal history of malignant neoplasm of other parts of uterus
CPT/HCPCS: 36415; 80053; 82150; 83605; 83690; 85025; 81001; 87086; 74176; 99284; 96374; 96375 ×3; 96361 ×2; J2405; J0696; J2270; J1885

== ENCOUNTER 2020-10-25 13:18 | Observation (INO) | payer MEDICARE ==
[2020-10-25 13:32] LABS: Glucose,Whole Blood 495 mg/dL (75-99)
[2020-10-25] MEDS ORDERED: SODIUM CHLORIDE 0.9% 1,000 ML IV STA (13:37)
--- NOTE | 2020-10-25 13:39 | ED ---
General Adult HPI - General Chief complaint: Recheck/Abnormal Lab/Rx Stated complaint: hyperglycemia Time Seen by Provider: 10/25/20 13:29 Source: patient, RN notes reviewed Mode of arrival: wheelchair Limitations: no limitations - History of Present Illness Initial comments: Patient is a pleasant 74-year-old female presenting to the emergency department after abnormal labs from her doctor there were done 3 days ago. Patient was called and told that her sugar was high as well as kidney function worsening. Patient was told to come the emergency department. There is also question of possible urinary tract infection. Patient denies urinary symptoms. Patient states she feels fine and has no complaints at this time. - Related Data Home Medications Medication Instructions Recorded Confirmed Furosemide [Lasix] 20 mg PO DAILY PRN 08/25/14 10/25/20 Insulin Detemir [Levemir Flextouch] See Protocol SQ HS 10/04/15 10/25/20 Insulin Lispro [humaLOG Kwikpen] 6 unit SQ AC-TID 10/04/15 10/25/20 Pantoprazole [Protonix] 40 mg PO DAILY 10/04/15 10/25/20 Aspirin EC [Ecotrin Low Dose] 81 mg PO DAILY 11/20/19 10/25/20 DULoxetine HCL [Cymbalta] 30 mg PO DAILY 11/20/19 10/25/20 Isosorbide Mononitrate ER [Imdur] 30 mg PO HS 11/20/19 10/25/20 Levothyroxine Sodium [Synthroid] 125 mcg PO DIRECTED 11/20/19 10/25/20 Melatonin 5 mg PO HS 11/20/19 10/25/20 Metoprolol Tartrate [Lopressor] 25 mg PO BID 11/20/19 10/25/20 Pravastatin Sodium [Pravachol] 10 mg PO DAILY 11/20/19 10/25/20 Benadryl Itching/Cooling [place] 1 spray TOPICAL QID PRN 10/25/20 10/25/20 Cholecalciferol [Vitamin D3 (25 50 mcg PO DAILY 10/25/20 10/25/20 Mcg = 1000 Iu)] Insulin Lispro [humaLOG Kwikpen] See Protocol SQ AC-TID PRN 10/25/20 10/25/20 Levothyroxine Sodium [Synthroid] 100 mcg PO DIRECTED 10/25/20 10/25/20 Allergies Allergy/AdvReac Type Severity Reaction Status Date / Time losartan [Losartan] AdvReac Cough Verified 10/25/20 14:50 Review of Systems ROS Statement: Those systems with pertinent positive or pertinent negative responses have been documented in the HPI. ROS Other: All systems not noted in ROS Statement are negative. Constitutional: Denies: fever Eyes: Denies: eye pain ENT: Denies: ear pain Respiratory: Denies: cough Cardiovascular: Denies: chest pain Endocrine: Denies: fatigue Gastrointestinal: Denies: abdominal pain Genitourinary: Denies: urgency, dysuria, frequency Musculoskeletal: Denies: back pain Skin: Denies: rash Neurological: Denies: headache, weakness Past Medical History Past Medical History: Cancer, Chest Pain / Angina, COPD, Diabetes Mellitus, Deep Vein Thrombosis (DVT), GERD/Reflux, Hyperlipidemia, Hypertension, Pneumonia, Pulmonary Embolus (PE), Thyroid Disorder Additional Past Medical History / Comment(s): DVT X2 LAST ONE 08/2014, HX UTERINE CA, RADIATION. IRON DEFECIENCY ANEMIA. 3 BLOOD CLOTS TO RIGHT LEG IN THE PAST. Parkinsons History of Any Multi-Drug Resistant Organisms: None Reported Past Surgical History: Adenoidectomy, Appendectomy, Hysterectomy, Orthopedic Surgery, Tonsillectomy Additional Past Surgical History / Comment(s): breast reduction, chin lift, lisette knee replacement Past Anesthesia/Blood Transfusion Reactions: No Reported Reaction Past Psychological History: Anxiety Smoking Status: Never smoker Past Alcohol Use History: Occasional Past Drug Use History: None Reported - Past Family History Sister(s) Family Medical History: Diabetes Mellitus Father Additional Family Medical History / Comment(s): Stroke Mother Family Medical History: Congestive Heart Failure (CHF) General Exam Limitations: no limitations General appearance: alert, in no apparent distress Head exam: Present: normocephalic Eye exam: Present: normal appearance Neck exam: Present: normal inspection Respiratory exam: Present: normal lung sounds bilaterally Cardiovascular Exam: Present: regular rate, normal rhythm GI/Abdominal exam: Present: soft. Absent: tenderness Extremities exam: Present: normal inspection Neurological exam: Present: alert Psychiatric exam: Present: normal affect, normal mood Skin exam: Present: rash (Patient does have some lesions on her arm and back that she has seen her doctor for it and things to see a custom tailor for) Course Vital Signs 10/25/20 13:21 Temperature 98.1 F Pulse Rate 65 Respiratory 18 Rate Blood Pressure 149/72 O2 Sat by Pulse 98 Oximetry EKG Findings - EKG Comments: EKG Findings:: Normal sinus rhythm at 60. IL 162. QRS 82. QT 422. QTC 422. Normal axis. Normal QRS. No acute ST change. Medical Decision Making - Medical Decision Making Patient reevaluated and updated. Case was discussed in detail with Dr. arana, who will admit covering for Dr. Church. - Lab Data Result diagrams: 10/25/20 13:45 10/25/20 13:45 Lab Results 10/25/20 10/25/20 10/25/20 Range/Units 13:30 13:45 13:45 WBC 4.9 (3.8-10.6) k/uL RBC 4.75 (3.80-5.40) m/uL Hgb 13.9 (11.4-16.0) gm/dL Hct 42.9 (34.0-46.0) % MCV 90.5 (80.0-100.0) fL MCH 29.4 (25.0-35.0) pg MCHC 32.5 (31.0-37.0) g/dL RDW 12.8 (11.5-15.5) % Plt Count 198 (150-450) k/uL MPV 8.6 Neutrophils % 47 % Lymphocytes % 40 % Monocytes % 5 % Eosinophils % 4 % Basophils % 1 % Neutrophils # 2.3 (1.3-7.7) k/uL Lymphocytes # 2.0 (1.0-4.8) k/uL Monocytes # 0.2 (0-1.0) k/uL Eosinophils # 0.2 (0-0.7) k/uL Basophils # 0.0 (0-0.2) k/uL Sodium 134 L (137-145) mmol/L Potassium 4.6 (3.5-5.1) mmol/L Chloride 92 L (98-107) mmol/L Carbon Dioxide 32 H (22-30) mmol/L Anion Gap 10 mmol/L BUN 31 H (7-17) mg/dL Creatinine 1.15 H (0.52-1.04) mg/dL Est GFR (CKD-EPI)AfAm 54 (>60 ml/min/1.73 sqM) Est GFR (CKD-EPI)NonAf 46 (>60 ml/min/1.73 sqM) Glucose 532 H* (74-99) mg/dL POC Glucose (mg/dL) 495 H (75-99) mg/dL POC Glu Smoking Tobacco Packer Hand ID Halima Altamirano Calcium 9.7 (8.4-10.2) mg/dL Magnesium 2.2 (1.6-2.3) mg/dL Total Bilirubin 0.8 (0.2-1.3) mg/dL AST 26 (14-36) U/L ALT 18 (4-34) U/L Alkaline Phosphatase 118 (38-126) U/L Total Protein 7.1 (6.3-8.2) g/dL Albumin 3.9 (3.5-5.0) g/dL Urine Color Urine Appearance (Clear) Urine pH (5.0-8.0) Ur Specific [place] (1.001-1.035) Urine Protein (Negative) Urine Glucose (UA) (Negative) Urine Ketones (Negative) Urine Blood (Negative) Urine Nitrite (Negative) Urine Bilirubin (Negative) Urine Urobilinogen (<2.0) mg/dL Ur Leukocyte Esterase (Negative) Urine RBC (0-5) /hpf Urine WBC (0-5) /hpf Urine WBC Clumps (None) /hpf Ur Squamous Epith Cells (0-4) /hpf Urine Bacteria (None) /hpf Hyaline Casts (0-2) /lpf Urine Mucus (None) /hpf Acetone, Qual Negative (Negative) 10/25/20 Range/Units 13:58 WBC (3.8-10.6) k/uL RBC (3.80-5.40) m/uL Hgb (11.4-16.0) gm/dL Hct (34.0-46.0) % MCV (80.0-100.0) fL MCH (25.0-35.0) pg MCHC (31.0-37.0) g/dL RDW (11.5-15.5) % Plt Count (150-450) k/uL MPV Neutrophils % % Lymphocytes % % Monocytes % % Eosinophils % % Basophils % % Neutrophils # (1.3-7.7) k/uL Lymphocytes # (1.0-4.8) k/uL Monocytes # (0-1.0) k/uL Eosinophils # (0-0.7) k/uL Basophils # (0-0.2) k/uL Sodium (137-145) mmol/L Potassium (3.5-5.1) mmol/L Chloride (98-107) mmol/L Carbon Dioxide (22-30) mmol/L Anion Gap mmol/L BUN (7-17) mg/dL Creatinine (0.52-1.04) mg/dL Est GFR (CKD-EPI)AfAm (>60 ml/min/1.73 sqM) Est GFR (CKD-EPI)NonAf (>60 ml/min/1.73 sqM) Glucose (74-99) mg/dL POC Glucose (mg/dL) (75-99) mg/dL POC Glu Smoking Tobacco Packer Hand ID Calcium (8.4-10.2) mg/dL Magnesium (1.6-2.3) mg/dL Total Bilirubin (0.2-1.3) mg/dL AST (14-36) U/L ALT (4-34) U/L Alkaline Phosphatase (38-126) U/L Total Protein (6.3-8.2) g/dL Albumin (3.5-5.0) g/dL Urine Color Light Yellow Urine Appearance Cloudy H (Clear) Urine pH 5.0 (5.0-8.0) Ur Specific [place] 1.013 (1.001-1.035) Urine Protein Negative (Negative) Urine Glucose (UA) 4+ H (Negative) Urine Ketones Negative (Negative) Urine Blood Trace H (Negative) Urine Nitrite Positive H (Negative) Urine Bilirubin Negative (Negative) Urine Urobilinogen <2.0 (<2.0) mg/dL Ur Leukocyte Esterase Large H (Negative) Urine RBC 2 (0-5) /hpf Urine WBC 70 H (0-5) /hpf Urine WBC Clumps Few H (None) /hpf Ur Squamous Epith Cells <1 (0-4) /hpf Urine Bacteria Many H (None) /hpf Hyaline Casts 1 (0-2) /lpf Urine Mucus Rare H (None) /hpf Acetone, Qual (Negative) Disposition Clinical Impression: Hyperglycemia, Urinary tract infection Disposition: ADMITTED IP TO THIS HOSP Is patient prescribed a controlled substance at d/c from ED?: No Referrals: Yuridia Niño MD [Primary Care Provider] - 1-2 days Decision Time: 15:11
[2020-10-25 14:03] LABS: Basophils % (A) 1 %; Eosinophils # (A) 0.2 k/uL (0-0.7); Eosinophils % (A) 4 %; HCT 42.9 % (34.0-46.0); HGB 13.9 gm/dL (11.4-16.0); Lymphocytes % (A) 40 %; MCH 29.4 pg (25.0-35.0); MCHC 32.5 g/dL (31.0-37.0); MCV 90.5 fL (80.0-100.0); Mean Platelet Volume 8.6; Monocytes # (A) 0.2 k/uL (0-1.0); Monocytes % (A) 5 %; Neutrophils # (A) 2.3 k/uL (1.3-7.7); Neutrophils % (A) 47 %; Platelet Count 198 k/uL (150-450); RBC 4.75 m/uL (3.80-5.40); RDW 12.8 % (11.5-15.5); WBC 4.9 k/uL (3.8-10.6)
[2020-10-25 14:18] LABS: Appearance,Urine Cloudy (Clear); Bacteria,Urine Many /hpf; Bilirubin,Urine Negative (Negative); Blood,Urine Trace (Negative); Color,Urine Light Yellow; Glucose,Urine (UA) 4+ (Negative); Hyaline Casts,Urine 1 /lpf (0-2); Ketones,Urine Negative (Negative); Leukocyte Esterase,Urine Large (Negative); Mucus,Urine Rare /hpf; Nitrite,Urine Positive (Negative); Protein,Urine Negative (Negative); RBC,Urine 2 /hpf (0-5); Specific Gravity,Urine 1.013 (1.001-1.035); Squamous Epithelial Cell,Urine <1 /hpf (0-4); Urobilinogen,Urine <2.0 mg/dL (<2.0); WBC,Urine 70 /hpf (0-5)
[2020-10-25 14:22] LABS: ALT 18 U/L (4-34); AST 26 U/L (14-36); African American GFR (CKD) 54 (>60 ml/min/1.73 sqM); Albumin 3.9 g/dL (3.5-5.0); Alkaline Phosphatase 118 U/L (38-126); Anion Gap 10 mmol/L; Blood Urea Nitrogen 31 mg/dL (7-17); Calcium 9.7 mg/dL (8.4-10.2); Carbon Dioxide 32 mmol/L (22-30); Chloride 92 mmol/L (98-107); Magnesium 2.2 mg/dL (1.6-2.3); Non-African American GFR(CKD) 46 (>60 ml/min/1.73 sqM); Potassium 4.6 mmol/L (3.5-5.1); Sodium 134 mmol/L (137-145); Total Bilirubin 0.8 mg/dL (0.2-1.3); Total Protein 7.1 g/dL (6.3-8.2)
[2020-10-25 14:36] LABS: Glucose 532 mg/dL (74-99)
[2020-10-25] MEDS ORDERED: NALOXONE 0.4 MG/ML 1 ML VIAL IV PRN ×2 (15:13→16:04)
[2020-10-25] MEDS ORDERED: SODIUM CHLORIDE 0.9% 500 ML 500 ML IV STA (15:13)
[2020-10-25 15:20] LABS: Glucose,Whole Blood 410 mg/dL (75-99)
[2020-10-25] MEDS ORDERED: INSULIN ASPART (NovoLOG) 100 UNIT/ML VIAL SQ ONE (15:25)
[2020-10-25] MEDS ORDERED: ACETAMINOPHEN TAB 325 MG TAB PO PRN (16:04)
[2020-10-25] MEDS ORDERED: bisacodyL 5 MG TABLET.DR PO PRN (16:04)
[2020-10-25] MEDS ORDERED: ONDANSETRON 4 MG/2 ML VIAL IVP PRN (16:04)
[2020-10-25] MEDS ORDERED: IOPAMIDOL CONTRAST (ORAL USE) VIAL PO PRN (16:35)
[2020-10-25] MEDS ORDERED: diphenhydrAMINE 2% CREAM 28.4 GM TUBE TOPICAL PRN (16:37)
--- NOTE | 2020-10-25 16:42 | P.HPIM ---
History of Present Illness H&P Date: 10/25/20 Chief Complaint: Hyperglycemia, UTI 74 year old woman with history of DM/HTN/HLD, Hx of uterine CA, Hx DVT/PE, hypothyroidism with iatrogenic hyperthyroidism, COPD, GERD, Parkinsons presented with abnormal labs from home. Pt was recently seen in PCPs office, where she had lab work done after routine physical. She was called today by her primary care doctor who advised that patient go to the emergency room for elevated sugar as well as urinary tract infection. Patient tells me that in the last week since she has had her labs drawn, she has not experienced specific symptoms, but on review systems she does report chills, hesitancy, frequency, mild nausea without vomiting. She denies fevers chest pain, palpitations, sick, presyncope, dyspnea, abdominal pain, dyschezia, numbness/weakness of extremities. She does report a 40 pound weight loss in the last 4 months, unintentional. After reviewing lab work, that appears the patient's kidney function has returned to baseline, however, patient continues to be nitrite positive in the urine as well as 4+ glucose, positive WBCs. Review of Systems All Systems reviewed and pertinent positives and negatives noted in HPI, all other symptoms are negative Past Medical History Past Medical History: Cancer, Chest Pain / Angina, COPD, Diabetes Mellitus, Deep Vein Thrombosis (DVT), GERD/Reflux, Hyperlipidemia, Hypertension, Pneumonia, Pulmonary Embolus (PE), Thyroid Disorder Additional Past Medical History / Comment(s): DVT X2 LAST ONE 08/2014, HX UTERINE CA, RADIATION. IRON DEFECIENCY ANEMIA. 3 BLOOD CLOTS TO RIGHT LEG IN THE PAST. Parkinsons History of Any Multi-Drug Resistant Organisms: None Reported Past Surgical History: Adenoidectomy, Appendectomy, Hysterectomy, Orthopedic Surgery, Tonsillectomy Additional Past Surgical History / Comment(s): breast reduction, chin lift, lisette knee replacement Past Anesthesia/Blood Transfusion Reactions: No Reported Reaction Past Psychological History: Anxiety Smoking Status: Never smoker Past Alcohol Use History: Occasional Past Drug Use History: None Reported - Past Family History Sister(s) Family Medical History: Diabetes Mellitus Father Additional Family Medical History / Comment(s): Stroke Mother Family Medical History: Congestive Heart Failure (CHF) Medications and Allergies Home Medications Medication Instructions Recorded Confirmed Type Furosemide [Lasix] 20 mg PO DAILY PRN 08/25/14 10/25/20 History Insulin Detemir [Levemir Flextouch] See Protocol SQ HS 10/04/15 10/25/20 History Insulin Lispro [humaLOG Kwikpen] 6 unit SQ AC-TID 10/04/15 10/25/20 History Pantoprazole [Protonix] 40 mg PO DAILY 10/04/15 10/25/20 History Aspirin EC [Ecotrin Low Dose] 81 mg PO DAILY 11/20/19 10/25/20 History DULoxetine HCL [Cymbalta] 30 mg PO DAILY 11/20/19 10/25/20 History Isosorbide Mononitrate ER [Imdur] 30 mg PO HS 11/20/19 10/25/20 History Levothyroxine Sodium [Synthroid] 125 mcg PO DIRECTED 11/20/19 10/25/20 History Melatonin 5 mg PO HS 11/20/19 10/25/20 History Metoprolol Tartrate [Lopressor] 25 mg PO BID 11/20/19 10/25/20 History Pravastatin Sodium [Pravachol] 10 mg PO DAILY 11/20/19 10/25/20 History Benadryl Itching/Cooling [place] 1 spray TOPICAL QID PRN 10/25/20 10/25/20 History Cholecalciferol [Vitamin D3 (25 50 mcg PO DAILY 10/25/20 10/25/20 History Mcg = 1000 Iu)] Insulin Lispro [humaLOG Kwikpen] See Protocol SQ AC-TID PRN 10/25/20 10/25/20 History Levothyroxine Sodium [Synthroid] 100 mcg PO DIRECTED 10/25/20 10/25/20 History Allergies Allergy/AdvReac Type Severity Reaction Status Date / Time losartan [Losartan] AdvReac Cough Verified 10/25/20 14:50 Physical Exam Osteopathic Statement: *. No significant issues noted on an osteopathic structural exam other than those noted in the History and Physical/Consult. Vitals: Vital Signs Temp Pulse Resp BP Pulse Ox 10/25/20 15:26 63 16 116/76 97 10/25/20 13:21 98.1 F 65 18 149/72 98 Intake and Output 10/25/20 10/25/20 10/25/20 06:59 14:59 22:59 Other: Weight 54.431 kg Gen: awake, alert HEENT: normocephalic, atraumatic, good hearing acuity, moist mucous membranes Resp: good air exchange, breathing comfortably with no accessory muscle use, clear to auscultation bilaterally without wheezes CVS: good distal perfusion x 4, regular rate and rhythm with systolic crescendo decrescendo murmur GI: soft, NTTP, ND : +SPT, no CVAT, hamm catheter not present MSK: no pitting edema, no clubbing Neuro: non-focal, moving all extremities Psych: cooperative, euthymic mood Results CBC & Chem 7: 10/25/20 13:45 10/25/20 13:45 Labs: Abnormal Lab Results - Last 24 Hours (Table) 10/25/20 10/25/20 10/25/20 Range/Units 13:30 13:45 13:58 Sodium 134 L (137-145) mmol/L Chloride 92 L (98-107) mmol/L Carbon Dioxide 32 H (22-30) mmol/L BUN 31 H (7-17) mg/dL Creatinine 1.15 H (0.52-1.04) mg/dL Glucose 532 H* (74-99) mg/dL POC Glucose (mg/dL) 495 H (75-99) mg/dL Urine Appearance Cloudy H (Clear) Urine Glucose (UA) 4+ H (Negative) Urine Blood Trace H (Negative) Urine Nitrite Positive H (Negative) Ur Leukocyte Esterase Large H (Negative) Urine WBC 70 H (0-5) /hpf Urine WBC Clumps Few H (None) /hpf Urine Bacteria Many H (None) /hpf Urine Mucus Rare H (None) /hpf 10/25/20 Range/Units 15:19 Sodium (137-145) mmol/L Chloride (98-107) mmol/L Carbon Dioxide (22-30) mmol/L BUN (7-17) mg/dL Creatinine (0.52-1.04) mg/dL Glucose (74-99) mg/dL POC Glucose (mg/dL) 410 H (75-99) mg/dL Urine Appearance (Clear) Urine Glucose (UA) (Negative) Urine Blood (Negative) Urine Nitrite (Negative) Ur Leukocyte Esterase (Negative) Urine WBC (0-5) /hpf Urine WBC Clumps (None) /hpf Urine Bacteria (None) /hpf Urine Mucus (None) /hpf Assessment and Plan Assessment: 1. Complicated urinary tract infection 2. Hyperglycemia with type 2 diabetes on insulin 3. Unintentional weight loss 4. Hypothyroidism with iatrogenic hyperthyroidism 5. History of uterine cancer 6. History of DVT/PE 7. Hypertension, essential 8. Hyperlipidemia 9. GERD with esophagitis next 74 year old woman with history of DM/HTN/HLD, Hx of uterine CA, Hx DVT/PE, hypothyroidism with iatrogenic hyperthyroidism, COPD, GERD, Parkinsons presented with abnormal labs from home with blood work concerning for hyperglycemia, UTI, and recent labwork demonstrating iatrogenic hyperthyroidism. Plan: - admit to observation - f/u UCx - ceftriaxone 1g daily - AC/HS accuchecks: levemir 36U qHS + 6U AC TID aspart + LD SSI AC TID - will down-titrate levothyroxine further to 88mcg daily from recent downtitration of 100mcg daily - CT A/P to evaluate anatomy and rule out masses from malignancy given weight loss and recurrent UTI - enoxaparin 30mg SQ daily for DVT PPx - continue home PPI - continue home statin, BP meds - IVF DNAR is DPOA with assistance from Son
[2020-10-25 17:19] LABS: Glucose,Whole Blood 359 mg/dL (75-99)
[2020-10-25] MEDS: INSULIN ASPART (NovoLOG) 100 UNIT/ML VIAL SQ SCH ×4 (18:13→20:09)
[2020-10-25] MEDS: SODIUM CHLORIDE 0.9% 1,000 ML IV SCH (18:15)
--- NOTE | 2020-10-25 19:21 | CT ---
EXAMINATION TYPE: CT abdomen pelvis w con DATE OF EXAM: 10/25/2020 COMPARISON: 06/13/2020 HISTORY: abdominal pain, recurrent UTI's CT DLP: 439.1 mGycm Automated exposure control for dose reduction was used. CONTRAST: Performed with IV Contrast, patient injected with 80 mL of Isovue 300. There is oral contrast also. Lung bases are clear of consolidation. There is minimal subsegmental atelectasis at the lung bases. H eart size is normal. There is no pericardial effusion. There is no pleural effusion. Liver and spleen appear normal. Bile ducts are not dilated. Stomach is intact. Gallbladder appears in tact. There is no adrenal mass. Kidneys show satisfactory contrast opacification. There is no hydrone phrosis. Ureters are not dilated. Bladder distends smoothly. There is no inguinal hernia. There is fa irly normal oral contrast opacification of the bowel. There is no sign of a bowel obstruction. There is no mesenteric edema. There is no ascites or free air. Lumbar vertebra have normal alignment. There is no compression fracture. There is multilevel spondylo tic changes. There is spur formation. There is mild lumbar disc space narrowing. The bony pelvis is i ntact. Proximal femurs and hip joints are intact. There is no free fluid in the pelvis. There is no evidence of pelvic mass. There is hysterectomy. The re is some atherosclerotic vascular calcification. Appendix is not seen. There is no sign of thickene d appendix. IMPRESSION: No acute abnormality of the abdomen pelvis. Atherosclerotic vascular disease. No significant change. Lumbar spondylotic changes.
[2020-10-25] MEDS: METOPROLOL TARTRATE 25 MG TAB PO SCH (19:23)
[2020-10-25 20:09] LABS: Glucose,Whole Blood 85 mg/dL (75-99)
[2020-10-25] MEDS ORDERED: cloNIDine HCL 0.2 MG TAB PO PRN (20:41)
[2020-10-25] MEDS ORDERED: ISOSORBIDE MONONITRATE ER 30 MG TAB.ER.24H PO SCH (21:00)
[2020-10-25] MEDS ORDERED: INSULIN DETEMIR (LEVEMIR) 100 UNIT/ML SYR SQ SCH (21:00)
[2020-10-25] MEDS ORDERED: MELATONIN 5 MG TABLET PO SCH (21:00)
[2020-10-25 21:36] LABS: Glucose,Whole Blood 68 mg/dL (75-99)
[2020-10-25 21:55] LABS: Glucose,Whole Blood 82 mg/dL (75-99)
[2020-10-26] MEDS: SODIUM CHLORIDE 0.9% 1,000 ML IV SCH (05:06)
[2020-10-26 05:25] LABS: Basophils % (A) 0 %; Eosinophils # (A) 0.3 k/uL (0-0.7); Eosinophils % (A) 5 %; HCT 38.3 % (34.0-46.0); HGB 12.8 gm/dL (11.4-16.0); Lymphocytes # (A) 2.2 k/uL (1.0-4.8); Lymphocytes % (A) 40 %; MCH 29.6 pg (25.0-35.0); MCHC 33.4 g/dL (31.0-37.0); MCV 88.5 fL (80.0-100.0); Monocytes # (A) 0.3 k/uL (0-1.0); Monocytes % (A) 5 %; Neutrophils # (A) 2.6 k/uL (1.3-7.7); Neutrophils % (A) 48 %; Platelet Count 165 k/uL (150-450); RBC 4.33 m/uL (3.80-5.40); RDW 12.7 % (11.5-15.5); WBC 5.5 k/uL (3.8-10.6)
[2020-10-26 07:20] LABS: Glucose,Whole Blood 248 mg/dL (75-99)
[2020-10-26] MEDS ORDERED: PANTOPRAZOLE 40 MG TABLET PO SCH (07:30)
[2020-10-26] MEDS: INSULIN ASPART (NovoLOG) 100 UNIT/ML VIAL SQ SCH ×6 (08:27→13:18)
[2020-10-26 08:45] VITALS: BP 167/94; PULSE 78; RESP 16; TEMP 97.6
[2020-10-26] MEDS ORDERED: ENOXAPARIN 30 MG/0.3 ML SYRINGE SQ SCH (09:00)
[2020-10-26] MEDS ORDERED: ATORVASTATIN 10 MG TAB PO SCH (09:00)
[2020-10-26] MEDS ORDERED: CHOLECALCIFEROL 25 MCG (1000 IU) TABLET PO SCH (09:00)
[2020-10-26] MEDS ORDERED: DULoxetine HCL 30 MG CAPSULE.DR PO SCH (09:00)
[2020-10-26] MEDS ORDERED: ASPIRIN 81 MG PO SCH (09:00)
[2020-10-26] MEDS: METOPROLOL TARTRATE 25 MG TAB PO SCH (09:48)
[2020-10-26 10:12] LABS: African American GFR (CKD) 56.5 (60.0-200.0); Anion Gap 6.7 mmol/L (4.00-12.00); BUN/Creat Ratio 22.73 Ratio (12.00-20.00); Calcium 9.2 mg/dL (8.7-10.3); Carbon Dioxide 31.3 mmol/L (21.6-31.8); Non-African American GFR(CKD) 48.7 (60.0-200.0)
[2020-10-26 11:39] LABS: Glucose,Whole Blood 204 mg/dL (75-99)
--- NOTE | 2020-10-26 14:05 | P.DS ---
Providers Date of admission: 10/25/20 16:04 Expected date of discharge: 10/26/20 Attending physician: Lauren Nix Primary care physician: Yuridia Niño [facility] Course: 74 year old woman with history of DM/HTN/HLD, Hx of uterine CA, Hx DVT/PE, hypothyroidism with iatrogenic hyperthyroidism, COPD, GERD, Parkinsons presented with abnormal labs from home with blood work concerning for hyperglycemia, UTI, and recent labwork demonstrating iatrogenic hyperthyroidism. Pt's clinical condition improved rapidly with treatment for UTI. She was restarted on insulin short acting prior to meals and bedtime, but did have an episode of hypoglycemia which resolved with orange juice. Incidentally, she had declined her long acting insulin and was hypoglycemic regardless. She used a total of 32 units of short acting insulin before meals, so on discharge, her insulin was down- titrated from levemir 36U qHS to levemir 16U qHS. In addition, her standing 6U AC-TID humalog was discontinued for SSI coverage only. Lastly, her levothyroxine was noted to be too high in dosing given elevated FT4, and so her dose was down titrated to 88mcg. Patient was counseled that the iatrogenic hyperthyroidism was likely causing her weight loss and her improved sensitivity to insulin. She should make these medication adjustments and closely follow up with PCP for further med titration. Assessment: Gen: awake, alert HEENT: normocephalic, atraumatic, good hearing acuity, moist mucous membranes Resp: good air exchange, breathing comfortably with no accessory muscle use, clear to auscultation bilaterally without wheezes CVS: good distal perfusion x 4, regular rate and rhythm with systolic crescendo decrescendo murmur GI: soft, NTTP, ND : +SPT, no CVAT, hamm catheter not present MSK: no pitting edema, no clubbing Neuro: non-focal, moving all extremities Psych: cooperative, euthymic mood Patient Condition at Discharge: Good Plan - Discharge Summary Discharge Rx Participant: No New Discharge Prescriptions: New Ciprofloxacin HCl [Cipro] 500 mg PO BID 6 Days #12 tab Levothyroxine Sodium 88 mcg PO AC-BRKFST #30 tablet Continue Furosemide [Lasix] 20 mg PO DAILY PRN PRN Reason: Edema Pantoprazole [Protonix] 40 mg PO DAILY Aspirin EC [Ecotrin Low Dose] 81 mg PO DAILY Metoprolol Tartrate [Lopressor] 25 mg PO BID Pravastatin Sodium [Pravachol] 10 mg PO DAILY Isosorbide Mononitrate ER [Imdur] 30 mg PO HS Melatonin 5 mg PO HS DULoxetine HCL [Cymbalta] 30 mg PO DAILY Cholecalciferol [Vitamin D3 (25 Mcg = 1000 Iu)] 50 mcg PO DAILY Benadryl Itching/Cooling [place] 1 spray TOPICAL QID PRN PRN Reason: Itching-sores on shoulders Insulin Lispro [humaLOG Kwikpen] See Protocol SQ AC-TID PRN #0 PRN Reason: high blood sugar Changed Insulin Detemir [Levemir Flextouch] 16 units SQ HS #1 pen Discontinued Insulin Lispro [humaLOG Kwikpen] 6 unit SQ AC-TID Levothyroxine Sodium [Synthroid] 125 mcg PO DIRECTED Levothyroxine Sodium [Synthroid] 100 mcg PO DIRECTED Discharge Medication List Furosemide [Lasix] 20 mg PO DAILY PRN 08/25/14 [History] Pantoprazole [Protonix] 40 mg PO DAILY 10/04/15 [History] Aspirin EC [Ecotrin Low Dose] 81 mg PO DAILY 11/20/19 [History] DULoxetine HCL [Cymbalta] 30 mg PO DAILY 11/20/19 [History] Isosorbide Mononitrate ER [Imdur] 30 mg PO HS 11/20/19 [History] Melatonin 5 mg PO HS 11/20/19 [History] Metoprolol Tartrate [Lopressor] 25 mg PO BID 11/20/19 [History] Pravastatin Sodium [Pravachol] 10 mg PO DAILY 11/20/19 [History] Benadryl Itching/Cooling [place] 1 spray TOPICAL QID PRN 10/25/20 [History] Cholecalciferol [Vitamin D3 (25 Mcg = 1000 Iu)] 50 mcg PO DAILY 10/25/20 [History] Ciprofloxacin HCl [Cipro] 500 mg PO BID 6 Days #12 tab 10/26/20 [Rx] Insulin Detemir [Levemir Flextouch] 16 units SQ HS #1 pen 10/26/20 [Rx] Insulin Lispro [humaLOG Kwikpen] See Protocol SQ AC-TID PRN #0 10/26/20 [Rx] Levothyroxine Sodium 88 mcg PO AC-BRKFST #30 tablet 10/26/20 [Rx] Follow up Appointment(s)/Referral(s): Yuridia Niño MD [Primary Care Provider] - 10/28/20 10:00 am Patient Instructions/Handouts: Urinary Tract Infection in Women (DC), Diabetic Hyperglycemia (DC) Discharge Disposition: HOME SELF-CARE
[2020-10-26 14:35] VITALS: BMI 24.2
== END 2020-10-26 13:43 | disposition home or self-care (01) ==
LOC: EC 13:18 → 6NMEDSUR 16:04
PROVIDERS: ADMIT Internal Medicine Nephrology; ATTEND Internal Medicine Nephrology
DX: N39.0 Urinary tract infection, site not specified (principal); E11.65 Type 2 diabetes mellitus with hyperglycemia; E03.9 Hypothyroidism, unspecified; E05.80 Other thyrotoxicosis without thyrotoxic crisis or storm; J44.9 Chronic obstructive pulmonary disease, unspecified; G20 Parkinson's disease; I10 Essential (primary) hypertension; E16.2 Hypoglycemia, unspecified; E78.5 Hyperlipidemia, unspecified; K21.00 Gastro-esophageal reflux disease with esophagitis, without bleeding; L29.9 Pruritus, unspecified; R60.9 Edema, unspecified; D50.9 Iron deficiency anemia, unspecified; F41.9 Anxiety disorder, unspecified; Z90.49 Acquired absence of other specified parts of digestive tract; Z96.653 Presence of artificial knee joint, bilateral; Z90.710 Acquired absence of both cervix and uterus; Z85.42 Personal history of malignant neoplasm of other parts of uterus; Z86.718 Personal history of other venous thrombosis and embolism; Z86.711 Personal history of pulmonary embolism; Z79.890 Hormone replacement therapy; Z87.01 Personal history of pneumonia (recurrent); Z92.3 Personal history of irradiation; Z79.4 Long term (current) use of insulin; Z79.82 Long term (current) use of aspirin; Z79.899 Other long term (current) drug therapy; Z88.8 Allergy status to other drugs, medicaments and biological substances; Z66 Do not resuscitate; Z83.3 Family history of diabetes mellitus; Z82.3 Family history of stroke; Z82.49 Family history of ischemic heart disease and other diseases of the circulatory system
CPT/HCPCS: 96366; 96372; 96361; 96365; 99284; 36415; 93005; 80053; 80048; 82009; 83735 ×2; 85025 ×2; 81001; 87086; 87077; 87186; 74177; G0378 ×2; J0696 ×2; J1650; Q9967

== ENCOUNTER → 2021-01-17 | Outpatient (CLI) | payer MEDICARE ==
--- NOTE | 2021-01-17 13:13 | XR ---
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 Soft tissue calcifications are noted some of which are vascular. Alignment is maintained. IMPRESSION: No fracture or dislocation of the right hand or wrist
== END | disposition home or self-care (01) ==
LOC: RADXRMAIN 09:58
PROVIDERS: ATTEND Family Medicine
DX: M25.531 Pain in right wrist (principal); M79.641 Pain in right hand